=== PATIENT | female | born 1935 | race Caucasian/White ===

== ENCOUNTER 2016-06-10 15:06 | Observation (INO) ==
[2016-06-10 15:50] LABS: Bilirubin,Urine Negative (Negative); Blood,Urine Negative (Negative); Clarity,Urine Clear (Clear); Color,Urine Yellow (Yellow); Glucose,Urine (UA) Normal (Normal); Ketones,Urine Negative (Negative); Leukocyte Esterase,Urine Negative (Negative); Nitrite,Urine Negative (Negative); PH,Urine 6.5 pH Units (5.0-8.0); Protein,Urine Negative (Neg-Trace); Specific Gravity,Urine 1.011 (1.010-1.025); Urobilinogen,Urine Normal (Normal)
--- NOTE | 2016-06-10 16:17 | Emergency Department Note ---
Disposition Clinical Impression: Chest pain Disposition: Admitted As Inpatient Condition: Good Referrals: NO,PCP [Primary Care Provider] - Forms: ED Satisfaction Letter Chest Pain HPI - General Chief Complaint: ED Chest Pain Stated Complaint: CP / Dizzy Time Seen by Provider: 06/10/16 15:10 Source: patient, EMS Vital Signs Reviewed: Yes Nursing Notes Reviewed: Yes - History of Present Illness HPI Narrative: History is limited secondary to patient's dementia. Per report patient reported some nurses station complaining of dizziness, shortness of breath, chest pain that started earlier today. Review of the medical chart reveals the patient was seen for chest pain in February 2016. Patient has dementia but she denies swelling. There is no report of nausea vomiting. Severity scale (1-10): 5 - Related Data Home Medications Medication Instructions Recorded Confirmed Albuterol Neb [Proventil Neb] 2.5 mg IH TID PRN #0 11/11/15 04/06/16 Aspirin 81 mg PO HS 11/11/15 04/06/16 Bisacodyl [Dulcolax] 5 mg PO DAILY PRN #0 11/11/15 04/06/16 Cholecalciferol (D-3) [Vitamin D] 1,000 unit PO DAILY #0 11/11/15 04/06/16 Docusate [Colace] 100 mg PO BID #0 11/11/15 04/06/16 Erythromycin Base [Ilotycin] 1 appl BOTH EYES HS #0 11/11/15 04/06/16 Fluticasone Propionate Nasal 100 mcg NS DAILY 11/11/15 04/06/16 [Flonase] Magnesium Hydroxide [Milk of 2,400 mg PO PRN PRN 11/11/15 04/06/16 Magnesia] Memantine HCl 10 mg PO BID #0 11/11/15 04/06/16 Multivitamin-Min/Iron/FA/Vit K 1 each PO DAILY 11/11/15 04/06/16 [Multi-Day Plus Minerals Tablet] OLANZapine [Zyprexa] 5 mg PO HS 11/11/15 04/06/16 Omeprazole 40 mg PO BID 11/11/15 04/06/16 Polyethylene Glycol 3350 [MiraLAX] 17 gm PO DAILY 11/11/15 04/06/16 Potassium Chloride [K-Tab ER] 10 meq PO DAILY #0 11/11/15 04/06/16 Promethazine [Phenergan] 25 mg PO Q6H PRN 11/11/15 04/06/16 Melatonin 10 mg PO HS 01/10/16 04/06/16 Donepezil [Aricept] 10 mg PO HS 01/19/16 04/06/16 Collagenase Oint [Santyl] 1 appl TP AD 02/24/16 04/06/16 Menthol [Biofreeze] 1 appl TP TID PRN 02/24/16 04/06/16 Oxybutynin Chloride [Ditropan Xl] 5 mg PO DAILY 02/24/16 04/06/16 Calcium Carbonate/Vitamin D3 1 each PO TID 04/06/16 04/06/16 [Calcium 600+D Softgel] LORazepam [Ativan] 0.5 mg PO Q4H PRN 04/06/16 04/06/16 Previous Rx's Medication Instructions Recorded Nystatin POWDER [Nystop] 1 appl TP TID #1 bottle 11/11/15 Albuterol Neb [Proventil Neb] 2.5 mg IH [id number] #0 inhsol 02/28/16 Atorvastatin [Lipitor] 40 mg PO HS tablet 02/28/16 Folic Acid 1 mg PO DAILY tablet 02/28/16 Furosemide [Lasix] 20 mg PO Q24H #0 02/28/16 Lisinopril [Zestril] 2.5 mg PO DAILY #0 02/28/16 Metoclopramide [Reglan] 10 mg PO ACHS ud.liq 02/28/16 Metoprolol XL (24 HR) Succ [Toprol 50 mg PO BID tab.er.24h 02/28/16 Xl] OxyCODONE ER (12 HR) [OxyCONTIN] 20 mg PO Q12HR #30 tab.er.12h 02/28/16 Oxycodone HCl/Acetaminophen 1 each PO Q6H #60 tablet 02/28/16 [Percocet 5-325 mg Tablet] Thiamine (B-1) [Vitamin B-1] 100 mg PO DAILY tablet 02/28/16 Allergies Allergy/AdvReac Type Severity Reaction Status Date / Time clarithromycin Allergy Hives Verified 11/10/15 21:04 codeine Allergy Hives Verified 11/10/15 21:04 hydrocodone [From Lortab] Allergy Hives Verified 11/10/15 21:04 ketorolac Allergy Hives Verified 11/10/15 21:04 Penicillins Allergy Hives Verified 11/10/15 21:04 ivp dye Allergy Anaphylaxis Uncoded 11/10/15 21:04 All systems ED: reviewed and negative except as stated. Chest Pain PMH - Past Medical History Medical history: Reports: arthritis, asthma, CHF, COPD, dementia, GERD, hyperlipidemia, hypertension, myocardial infarction, osteoporosis, renal disease , TIA, other Surgical history: Reports: appendectomy, cholecystectomy, hysterectomy, knee replacement, other Psychiatric history: Reports: schizophrenia, other [employer] history: Reports: no [employer] history - Social History Smoking Status: Never smoker Alcohol use: Reports: none Drug use: Reports: none Physical Exam - General Limitations: altered mental status General appearance: alert - Head Head exam: atraumatic, normocephalic, normal inspection - Eye Eye exam: Present: normal appearance, PERRL, EOMI - ENT ENT exam: normal exam, normal oropharynx, mucous membranes moist - Neck Neck exam: Present: normal inspection, full ROM, trachea midline - Chest Chest inspection: Present: normal inspection, symmetric chest wall rise - Respiratory Respiratory exam: Present: normal lung sounds bilaterally - Cardiovascular Cardiovascular exam: Present: regular rate, normal rhythm, normal heart sounds - Abdominal Exam Abdominal exam: Present: soft, Non-Tender. Absent: tenderness, distention, guarding, rebound, rigidity - Extremities Exam Extremities exam: Present: normal inspection, full ROM. Absent: tenderness, pedal edema - Back Exam Back exam: Present: normal inspection, full ROM. Absent: tenderness - Neurological Exam Neurological exam: Present: other (Limited secondary to patient's mental status) - Psychiatric Psychiatric exam: Present: other (Limited secondary to patient mental status) - Skin Skin exam: Present: warm, dry, intact, normal color Course Course Narrative: D-dimer is elevated. CT PE cannot perform due to patient's kidney function Vital Signs Temperature 98.5 F 06/10/16 15:10 Pulse Rate 51 06/10/16 15:10 Respiratory Rate 14 06/10/16 15:10 Blood Pressure 179/92 06/10/16 15:10 O2 Sat by Pulse Oximetry 96 06/10/16 15:10 Temperature 98.5 F 06/10/16 15:10 Pulse Rate 62 06/10/16 17:39 Respiratory Rate 20 06/10/16 17:39 Blood Pressure 165/86 06/10/16 17:39 O2 Sat by Pulse Oximetry 95 06/10/16 17:39 Oxygen Delivery Oxygen Delivery Nasal Cannula Chest Pain - Differential Diagnosis Likely: stable angina, atypical chest pain, st elevation myocardial infraction, chest pain - Medical Records Medical records reviewed: Yes I reviewed the patient's medical records. - Lab Data Lab results reviewed: Yes I reviewed the patient's lab results. Result diagrams: 06/10/16 17:17 06/10/16 16:33 Lab Results 06/10/16 06/10/16 06/10/16 Range/Units 15:34 16:33 16:33 WBC (4.3-11.1) K/mcL RBC (3.82-4.97) M/mcL Hgb (11.5-15.4) g/dL Hct (35.3-44.9) % MCV (83.0-100.0) fL MCH (28.0-33.3) pg MCHC (31.6-35.5) g/dL RDW (11.5-14.5) % Plt Count (140-400) K/mcL MPV (9.4-12.4) fL Immature Gran % (0-4) % Seg Neutrophils % % Lymphocytes % % Monocytes % % Eosinophils % % Basophils % % Neutrophils # (1.6-8.9) K/mcL Lymphocytes # (0.6-4.6) K/mcL Monocytes # (0.0-1.3) K/mcL Eosinophils # (0.0-0.6) K/mcL Basophils # (0.0-0.2) K/mcL Immature Plt Fraction (1.1-6.1) % PT 12.9 H (9.4-12.1) Seconds INR 1.2 APTT 30.8 (26.0-36.0) Seconds D-Dimer 995 H (0-500) ng/mLFEU Sodium 137 (136-145) mEq/L Potassium 4.7 H (3.5-4.5) mEq/L Chloride 103 (98-109) mEq/L Carbon Dioxide 24 (19-29) mEq/L BUN 26 H (7-20) mg/dL Creatinine 1.11 (0.57-1.11) mg/dL Est GFR ( Amer) 57 L (> 60) Est GFR (Non-Af Amer) 47 L (> 60) BUN/Creatinine Ratio 23 (6-26) Glucose 100 H (70-99) mg/dL Calculated Osmolality 289 (280-300) Lactic Acid (0.5-2.2) mmol/L Calcium 9.1 (8.6-10.8) mg/dL Total Bilirubin 0.4 (0.2-1.2) mg/dL AST 17 (5-34) Units/L ALT 9 (0-55) Units/L Alkaline Phosphatase 91 (38-126) Units/L Troponin I (0-0.03) ng/mL B-Natriuretic Peptide (0-100) pg/mL Serum Total Protein 6.3 (6.0-8.3) g/dL Albumin 3.4 L (3.5-5.0) g/dL Globulin 2.9 (2.4-3.5) g/dL Albumin/Globulin Ratio 1.2 (1.1-2.2) Urine Color Yellow (Yellow) Urine Clarity Clear (Clear) Urine pH 6.5 (5.0-8.0) pH Units Ur Specific [place] 1.011 (1.010-1.025) Urine Protein Negative (Neg-Trace) mg/dL Urine Glucose (UA) Normal (Normal) mg/dL Urine Ketones Negative (Negative) mg/dL Urine Blood Negative (Negative) Urine Nitrite Negative (Negative) Urine Bilirubin Negative (Negative) Urine Urobilinogen Normal (Normal) mg/dL Ur Leukocyte Esterase Negative (Negative) Ur Culture Indicated? NO (NO) Specimen Rejected 06/10/16 06/10/16 06/10/16 Range/Units 16:33 16:33 16:33 WBC (4.3-11.1) K/mcL RBC (3.82-4.97) M/mcL Hgb (11.5-15.4) g/dL Hct (35.3-44.9) % MCV (83.0-100.0) fL MCH (28.0-33.3) pg MCHC (31.6-35.5) g/dL RDW (11.5-14.5) % Plt Count (140-400) K/mcL MPV (9.4-12.4) fL Immature Gran % (0-4) % Seg Neutrophils % % Lymphocytes % % Monocytes % % Eosinophils % % Basophils % % Neutrophils # (1.6-8.9) K/mcL Lymphocytes # (0.6-4.6) K/mcL Monocytes # (0.0-1.3) K/mcL Eosinophils # (0.0-0.6) K/mcL Basophils # (0.0-0.2) K/mcL Immature Plt Fraction (1.1-6.1) % PT (9.4-12.1) Seconds INR APTT (26.0-36.0) Seconds D-Dimer (0-500) ng/mLFEU Sodium (136-145) mEq/L Potassium (3.5-4.5) mEq/L Chloride (98-109) mEq/L Carbon Dioxide (19-29) mEq/L BUN (7-20) mg/dL Creatinine (0.57-1.11) mg/dL Est GFR ( Amer) (> 60) Est GFR (Non-Af Amer) (> 60) BUN/Creatinine Ratio (6-26) Glucose (70-99) mg/dL Calculated Osmolality (280-300) Lactic Acid (0.5-2.2) mmol/L Calcium (8.6-10.8) mg/dL Total Bilirubin (0.2-1.2) mg/dL AST (5-34) Units/L ALT (0-55) Units/L Alkaline Phosphatase (38-126) Units/L Troponin I 0.01 (0-0.03) ng/mL B-Natriuretic Peptide 141 H (0-100) pg/mL Serum Total Protein (6.0-8.3) g/dL Albumin (3.5-5.0) g/dL Globulin (2.4-3.5) g/dL Albumin/Globulin Ratio (1.1-2.2) Urine Color (Yellow) Urine Clarity (Clear) Urine pH (5.0-8.0) pH Units Ur Specific [place] (1.010-1.025) Urine Protein (Neg-Trace) mg/dL Urine Glucose (UA) (Normal) mg/dL Urine Ketones (Negative) mg/dL Urine Blood (Negative) Urine Nitrite (Negative) Urine Bilirubin (Negative) Urine Urobilinogen (Normal) mg/dL Ur Leukocyte Esterase (Negative) Ur Culture Indicated? (NO) Specimen Rejected Clotted 06/10/16 06/10/16 Range/Units 16:49 17:17 WBC 6.2 (4.3-11.1) K/mcL RBC 3.76 L (3.82-4.97) M/mcL Hgb 11.4 L (11.5-15.4) g/dL Hct 35.1 L (35.3-44.9) % MCV 93.4 (83.0-100.0) fL MCH 30.3 (28.0-33.3) pg MCHC 32.5 (31.6-35.5) g/dL RDW 12.4 (11.5-14.5) % Plt Count 180 (140-400) K/mcL MPV 9.4 (9.4-12.4) fL Immature Gran % 0.2 (0-4) % Seg Neutrophils % 60.2 % Lymphocytes % 23.6 % Monocytes % 11.3 % Eosinophils % 4.2 % Basophils % 0.5 % Neutrophils # 3.7 (1.6-8.9) K/mcL Lymphocytes # 1.5 (0.6-4.6) K/mcL Monocytes # 0.7 (0.0-1.3) K/mcL Eosinophils # 0.3 (0.0-0.6) K/mcL Basophils # 0.0 (0.0-0.2) K/mcL Immature Plt Fraction 2.3 (1.1-6.1) % PT (9.4-12.1) Seconds INR APTT (26.0-36.0) Seconds D-Dimer (0-500) ng/mLFEU Sodium (136-145) mEq/L Potassium (3.5-4.5) mEq/L Chloride (98-109) mEq/L Carbon Dioxide (19-29) mEq/L BUN (7-20) mg/dL Creatinine (0.57-1.11) mg/dL Est GFR ( Amer) (> 60) Est GFR (Non-Af Amer) (> 60) BUN/Creatinine Ratio (6-26) Glucose (70-99) mg/dL Calculated Osmolality (280-300) Lactic Acid 0.6 (0.5-2.2) mmol/L Calcium (8.6-10.8) mg/dL Total Bilirubin (0.2-1.2) mg/dL AST (5-34) Units/L ALT (0-55) Units/L Alkaline Phosphatase (38-126) Units/L Troponin I (0-0.03) ng/mL B-Natriuretic Peptide (0-100) pg/mL Serum Total Protein (6.0-8.3) g/dL Albumin (3.5-5.0) g/dL Globulin (2.4-3.5) g/dL Albumin/Globulin Ratio (1.1-2.2) Urine Color (Yellow) Urine Clarity (Clear) Urine pH (5.0-8.0) pH Units Ur Specific [place] (1.010-1.025) Urine Protein (Neg-Trace) mg/dL Urine Glucose (UA) (Normal) mg/dL Urine Ketones (Negative) mg/dL Urine Blood (Negative) Urine Nitrite (Negative) Urine Bilirubin (Negative) Urine Urobilinogen (Normal) mg/dL Ur Leukocyte Esterase (Negative) Ur Culture Indicated? (NO) Specimen Rejected - Radiology Data Radiology results reviewed: Yes I reviewed the patient's radiology results. Chest X-Ray 06/10/16 15:27 IMPRESSION: No acute cardiopulmonary disease. D/ / 06/10/2016 16:08:34 Uriel Reynoso MD / fausto Interpreting Provider: Uriel Reynoso MD - EKG Data EKG attestation: Yes I reviewed and interpreted this EKG. EKG results narrative: T-wave inversions in lead 3 and T-wave flattening aVF that is not present on previous EKG EKG shows normal: sinus rhythm Rate: normal Rhythm: NSR
[2016-06-10 17:09] LABS: INR 1.2; Prothrombin Time 12.9 Seconds (9.4-12.1)
[2016-06-10 17:11] LABS: Activated Partial Thrombo Time 30.8 Seconds (26.0-36.0)
[2016-06-10 17:17] LABS: Albumin 3.4 g/dL (3.5-5.0); Albumin/Globulin Ratio 1.2 (1.1-2.2); Bilirubin,Total 0.4 mg/dL (0.2-1.2); Calcium 9.1 mg/dL (8.6-10.8); Globulin 2.9 g/dL (2.4-3.5); Potassium 4.7 mEq/L (3.5-4.5); Total Protein 6.3 g/dL (6.0-8.3)
[2016-06-10 17:26] LABS: Basophils % 0.5 %; Eosinophils # 0.3 K/mcL (0.0-0.6); Eosinophils % 4.2 %; Hematocrit 35.1 % (35.3-44.9); Hemoglobin 11.4 g/dL (11.5-15.4); Immature Granulocytes % 0.2 % (0-4); Immature Platelets 2.3 % (1.1-6.1); Lymphocytes # 1.5 K/mcL (0.6-4.6); Lymphocytes % 23.6 %; Mean Corpuscular HGB Conc 32.5 g/dL (31.6-35.5); Mean Corpuscular Hemoglobin 30.3 pg (28.0-33.3); Mean Corpuscular Volume 93.4 fL (83.0-100.0); Mean Platelet Volume 9.4 fL (9.4-12.4); Monocytes # 0.7 K/mcL (0.0-1.3); Monocytes % 11.3 %; Neutrophils # 3.7 K/mcL (1.6-8.9); Platelet Count 180 K/mcL (140-400); Red Blood Count 3.76 M/mcL (3.82-4.97); Red Cell Distribution Width 12.4 % (11.5-14.5); Segmented Neutrophils % 60.2 %
[2016-06-10] MEDS ORDERED: Temazepam 15 MG CAPSULE PO PRN (20:47)
[2016-06-10] MEDS ORDERED: Naloxone 0.4 MG/ML INJ IVP PRN (20:47)
[2016-06-10] MEDS ORDERED: Ondansetron 4 MG/2 ML VIAL IVP PRN (20:53)
--- NOTE | 2016-06-10 21:00 | Internal Med History&Physical ---
Date of Encounter: 06/11/16 Time of Encounter: 20:58 Assessment and Plan (1) Elevated d-dimer Current visit: Yes Status: Acute Patient has an IV dye allergy. Will order VQ scan for the morning to rule out PE. We will obtain lower extremity venous Doppler. (2) Allergy to contrast media (used for diagnostic x-rays) Current visit: Yes Status: Acute As above. (3) Chest pain Current visit: Yes Status: Acute Trend troponin. Monitor on telemetry. Qualifiers: Chest pain type: unspecified Qualified Code(s): R07.9 - Chest pain, unspecified (4) Abnormal EKG Current visit: No Status: Acute (5) CKD (chronic kidney disease) stage 3, GFR 30-59 ml/min Current visit: No Status: Acute Avoid nephrotoxins. (6) DVT prophylaxis Current visit: No Status: Acute Heparin subcutaneous (7) Takotsubo cardiomyopathy Current visit: No Status: Acute Per chart review patient had an echocardiogram in February 2016 which showed an ejection fraction of 20%. She had a cardiac catheterization at the same time which showed minimal atherosclerotic coronary disease. No intervention was needed. Findings consistent with cerebral cardiomyopathy. We will obtain a limited echocardiogram to reevaluate ejection fraction. (8) Dementia Current visit: No Status: Chronic Continue Namenda Qualifiers: Dementia type: Alzheimer's disease Alzheimer's disease onset: late-onset Dementia behavioral disturbance: without behavioral disturbance Qualified Code (s): G30.1 - Alzheimer's disease with late onset; F02.80 - Dementia in other diseases classified elsewhere without behavioral disturbance (9) Hypertension Current visit: No Status: Chronic Continue with lisinopril and metoprolol. Qualifiers: Hypertension type: essential hypertension Qualified Code(s): I10 - Essential (primary) hypertension Internal Medicine - H&P: HPI Chief complaint: Chest pain Admitted From: Emergency Dept Plans for Post Hospital Care: Transfer Longterm Facility History of present illness: Ms. Almendarez is a 80 year old female , [facility] resident with multiple medical comorbidities including COPD, GERD, cardiomyopathy, hypertension and TIA who was brought to the hospital for chest pain and dizziness. The history is limited by his severe dementia. Per ED documentation the patient had been lightheaded than complaining of chest pain at the [facility] today. Currently she says that she hurts all over but she appears very comfortable. She denies shortness of breath and diaphoresis. Denies nausea. Her initial workup was negative except for a d-dimer which was positive. Because of her CK D she could not be subjected to a CT angiogram of the chest and therefore was referred for observation. Review of systems Limited by the patient's dementia Family history Limited by the patient's dementia. Past Med Surg Social Fam HX - Past Medical History Medical history: arthritis, asthma, CHF, COPD, dementia, GERD, hyperlipidemia, hypertension, myocardial infarction, osteoporosis, renal disease, TIA, other Psychiatric history: schizophrenia, other - Past Surgical History Surgical History: appendectomy, cholecystectomy, hysterectomy, knee replacement , other - Social History Smoking Status: Never smoker Smokeless Tobacco Status: No Alcohol use: none Drug use: none - Family History Mother History Unknown: Yes Family Member Ethnicity: Non- Living Status: Hx Family Cardiac Disorders: Yes (HTN) Hx Family Endocrine Disorder: Yes (insulin dependent) Internal Medicine - H&P: Meds Albuterol Neb [Proventil Neb] 2.5 mg IH TID PRN #0 11/11/15 [History] Aspirin 81 mg PO HS 11/11/15 [History] Bisacodyl [Dulcolax] 5 mg PO DAILY PRN #0 11/11/15 [History] Cholecalciferol (D-3) [Vitamin D] 1,000 unit PO DAILY #0 11/11/15 [History] Docusate [Colace] 100 mg PO BID #0 11/11/15 [History] Erythromycin Base [Ilotycin] 1 appl BOTH EYES HS #0 11/11/15 [History] Fluticasone Propionate Nasal [Flonase] 100 mcg NS DAILY 11/11/15 [History] Magnesium Hydroxide [Milk of Magnesia] 2,400 mg PO PRN PRN 11/11/15 [History] Memantine HCl 10 mg PO BID #0 11/11/15 [History] Multivitamin-Min/Iron/FA/Vit K [Multi-Day Plus Minerals Tablet] 1 each PO DAILY 11/11/15 [History] Nystatin POWDER [Nystop] 1 appl TP TID #1 bottle 11/11/15 [Rx] OLANZapine [Zyprexa] 5 mg PO HS 11/11/15 [History] Omeprazole 40 mg PO BID 11/11/15 [History] Polyethylene Glycol 3350 [MiraLAX] 17 gm PO DAILY 11/11/15 [History] Potassium Chloride [K-Tab ER] 10 meq PO DAILY #0 11/11/15 [History] Promethazine [Phenergan] 25 mg PO Q6H PRN 11/11/15 [History] Melatonin 10 mg PO HS 01/10/16 [History] Donepezil [Aricept] 10 mg PO HS 01/19/16 [History] Collagenase Oint [Santyl] 1 appl TP AD 02/24/16 [History] Menthol [Biofreeze] 1 appl TP TID PRN 02/24/16 [History] Oxybutynin Chloride [Ditropan Xl] 5 mg PO DAILY 02/24/16 [History] Albuterol Neb [Proventil Neb] 2.5 mg IH [id number] #0 inhsol 02/28/16 [Rx] Atorvastatin [Lipitor] 40 mg PO HS tablet 02/28/16 [Rx] Folic Acid 1 mg PO DAILY tablet 02/28/16 [Rx] Furosemide [Lasix] 20 mg PO Q24H #0 02/28/16 [Rx] Lisinopril [Zestril] 2.5 mg PO DAILY #0 02/28/16 [Rx] Metoclopramide [Reglan] 10 mg PO ACHS ud.liq 02/28/16 [Rx] Metoprolol XL (24 HR) Succ [Toprol Xl] 50 mg PO BID tab.er.24h 02/28/16 [Rx] OxyCODONE ER (12 HR) [OxyCONTIN] 20 mg PO Q12HR #30 tab.er.12h 02/28/16 [Rx] Oxycodone HCl/Acetaminophen [Percocet 5-325 mg Tablet] 1 each PO Q6H #60 tablet 02/28/16 [Rx] Thiamine (B-1) [Vitamin B-1] 100 mg PO DAILY tablet 02/28/16 [Rx] Calcium Carbonate/Vitamin D3 [Calcium 600+D Softgel] 1 each PO TID 04/06/16 [ History] LORazepam [Ativan] 0.5 mg PO Q4H PRN 04/06/16 [History] Allergies clarithromycin Allergy (Verified 11/10/15 21:04) Hives codeine Allergy (Verified 11/10/15 21:04) Hives hydrocodone [From Lortab] Allergy (Verified 11/10/15 21:04) Hives ketorolac Allergy (Verified 11/10/15 21:04) Hives Penicillins Allergy (Verified 11/10/15 21:04) Hives ivp dye Allergy (Uncoded 11/10/15 21:04) Anaphylaxis All Systems PM: A 10-system review of systems was performed and is negative for pertinent findings except as documented above in the HPI. - Constitutional Vitals: Temp Pulse Resp BP Pulse Ox 98.8 F 53 12 172/79 94 L 06/10/16 19:17 06/10/16 19:17 06/10/16 19:17 06/10/16 19:06/10/16 19:17 General appearance: Present: cooperative, A&O X 1, no acute distress - Eye Eye exam: Present: PERRL, conjuntiva pink, sclera anicteric Pupils: Present: PERRL - Respiratory Respiratory exam: Present: CTAB. Absent: accessory muscle use, rales, rhonchi, wheezes - Cardiovascular Cardiovascular exam: Present: RRR, +S1, +S2. Absent: diastolic murmur, gallop, rubs, systolic murmur - GI/Abdominal GI/Abdominal exam: Present: normal bowel sounds, soft, no peritoneal signs. Absent: distended, tenderness - Extremities Exam Extremities exam: Present: warm, radial pulses palpable and symetrical. Absent : calf tenderness, cyanotic, pedal edema - Skin Skin exam: Present: dry, intact Internal Med - H&P Results - Labs CBC & Chem 7: 06/10/16 17:17 06/10/16 16:33 - EKG Data EKG comments: 06/11/16 04:56 EKG shows sinus bradycardiarate 50 bpm, first-degree, LVH and no ST or T-wave changes.
[2016-06-10] MEDS ORDERED: Ipratropium/Albuterol Neb 3 ML IH PRN (21:09)
[2016-06-11 06:21] LABS: Basophils % 0.7 %; Eosinophils # 0.3 K/mcL (0.0-0.6); Eosinophils % 5.1 %; Hematocrit 35.6 % (35.3-44.9); Hemoglobin 11.5 g/dL (11.5-15.4); Immature Granulocytes % 0.2 % (0-4); Lymphocytes # 1.8 K/mcL (0.6-4.6); Lymphocytes % 34.3 %; Mean Corpuscular HGB Conc 32.3 g/dL (31.6-35.5); Mean Corpuscular Hemoglobin 30.2 pg (28.0-33.3); Mean Corpuscular Volume 93.4 fL (83.0-100.0); Mean Platelet Volume 9.7 fL (9.4-12.4); Monocytes # 0.7 K/mcL (0.0-1.3); Monocytes % 12.4 %; Neutrophils # 2.5 K/mcL (1.6-8.9); Platelet Count 180 K/mcL (140-400); Red Blood Count 3.81 M/mcL (3.82-4.97); Red Cell Distribution Width 12.6 % (11.5-14.5); Segmented Neutrophils % 47.3 %
[2016-06-11 06:34] LABS: Calcium 9.4 mg/dL (8.6-10.8); Magnesium 2.3 mg/dL (1.6-2.6); Potassium 4.2 mEq/L (3.5-4.5)
[2016-06-11] MEDS ORDERED: *HR* Heparin 5,000 UNIT/ML VIAL SQ SCH (07:00)
--- NOTE | 2016-06-11 12:17 | ECHO - Doppler Report ---
Limited Echocardiogram Name: Tigist Almendarez Date of Study: 06/11/2016 Date: 1935 Ht: 65.0 in Medical Record#: [id number] Age: 80 Wt: 166.0 lb Gender: Female BSA: 1.83 Order #: [id number] Location: [facility] Room #: [facility] [place] Physician: Nikita Hamilton DO, FACC, FASE, FASNC Professor Of Psychology: Tatum Sarabia RDCS, RVT Ordering Physician: Az Liagn MD Primary Physician: Chacorta Arce MD Indications: Chest pain, Cardiomyopathy Impressions: LVEF 60-65%. Normal LV chamber size, wall thickness and function. Previously described cardiomyopathy has resolved. LV function is now normal. Limited study - valves not assessed. Left Ventricular Wall Motion: Rest Echo Findings All wall segments showed normal motion. Findings: Study Quality * Technically adequate exam. ECG Findings * Normal sinus rhythm. Left Ventricle * LVEF 60-65%. * Normal LV chamber size, wall thickness and function. Right Ventricle * Normal right ventricular structure and function. Pericardium * The pericardium appears normal. IVC * Normal IVC dimensions and inspiratory collapse. History Hypertension Hypercholesteremia Rheumatic Fever Family History of CAD History of CAD/PTCA Myocardial Infarction Congestive Heart Failure 05-07-2016 a Previous Echo was performed. Measurements: BP: 136/ 72 2D Normal Values IVSd: .80 cm 0.6 - 1.0 cm LVIDd: 5.10 cm 3.7 - 5.6 cm LVPWd: .80 cm 0.6 - 1.1 cm LVIDs: 2.80 cm 1.5 - 3.6 cm %FS: 45.10 cm >25 % LA volume: Updated by Nikita Hamilton DO, FACC, FASE, FASNC on 06/11/2016 12:08:10 PM electronically signed on 06/11/2016 12:12:41 PM with status of Final Wall Motion [place]: 1=Normal, 2=Hypokinesis, 3=Akinesis, 4=Dyskinesis, 5=Aneurysmal, 6=Hyperkinetic, X=Not Visualized (Blank)=Missing
[2016-06-11 15:58] VITALS: BP 144/79
--- NOTE | 2016-06-11 16:03 | Discharge Summary ---
Date of Encounter: 06/11/16 Time of Encounter: 15:00 - Discharge Diagnosis (1) Chest pain Priority: Primary Status: Acute Qualifiers: Chest pain type: unspecified Qualified Code(s): R07.9 - Chest pain, unspecified (2) Takotsubo cardiomyopathy Priority: Primary Status: Acute (3) Dementia Priority: Primary Status: Chronic Qualifiers: Dementia type: Alzheimer's disease Alzheimer's disease onset: late-onset Dementia behavioral disturbance: without behavioral disturbance Qualified Code (s): G30.1 - Alzheimer's disease with late onset; F02.80 - Dementia in other diseases classified elsewhere without behavioral disturbance (4) Renal insufficiency Priority: Secondary Status: Resolved (5) Elevated d-dimer Priority: Primary Status: Acute - Discharge Medications Home Medications: Albuterol Neb [Proventil Neb] 2.5 mg IH TID PRN #0 11/11/15 [History] Aspirin 81 mg PO HS 11/11/15 [History] Bisacodyl [Dulcolax] 5 mg PO DAILY PRN #0 11/11/15 [History] Cholecalciferol (D-3) [Vitamin D] 1,000 unit PO DAILY #0 11/11/15 [History] Docusate [Colace] 100 mg PO BID PRN #0 11/11/15 [History] Erythromycin Base [Ilotycin] 1 appl BOTH EYES HS #0 11/11/15 [History] Fluticasone Propionate Nasal [Flonase] 100 mcg NS DAILY PRN 11/11/15 [History] Magnesium Hydroxide [Milk of Magnesia] 2,400 mg PO PRN PRN 11/11/15 [History] Memantine HCl 10 mg PO BID #0 11/11/15 [History] Multivitamin-Min/Iron/FA/Vit K [Multi-Day Plus Minerals Tablet] 1 each PO DAILY 11/11/15 [History] OLANZapine [Zyprexa] 5 mg PO HS 11/11/15 [History] Omeprazole 40 mg PO BID 11/11/15 [History] Polyethylene Glycol 3350 [MiraLAX] 17 gm PO BID 11/11/15 [History] Potassium Chloride [K-Tab ER] 10 meq PO DAILY #0 11/11/15 [History] Promethazine [Phenergan] 25 mg PO Q6H PRN 11/11/15 [History] Melatonin 10 mg PO HS 01/10/16 [History] Donepezil [Aricept] 10 mg PO HS 01/19/16 [History] Menthol [Biofreeze] 1 appl TP TID PRN 02/24/16 [History] Oxybutynin Chloride [Ditropan Xl] 5 mg PO DAILY 02/24/16 [History] Atorvastatin [Lipitor] 40 mg PO HS tablet 02/28/16 [Rx] Folic Acid 1 mg PO DAILY tablet 02/28/16 [Rx] Lisinopril [Zestril] 2.5 mg PO DAILY #0 02/28/16 [Rx] Metoprolol XL (24 HR) Succ [Toprol Xl] 50 mg PO BID tab.er.24h 02/28/16 [Rx] Thiamine (B-1) [Vitamin B-1] 100 mg PO DAILY tablet 02/28/16 [Rx] Calcium Carbonate/Vitamin D3 [Calcium 600+D Softgel] 1 each PO TID 04/06/16 [ History] Acetaminophen [Tylenol] 325 mg PO Q6HR PRN 06/11/16 [History] Albuterol Neb [Proventil Neb] 2.5 mg IH [id number] PRN 06/11/16 [History] Furosemide [Lasix] 20 mg PO DAILY 06/11/16 [History] MOM Conc [MILK OF MAGNESIA conc] 30 ml PO DAILY PRN 06/11/16 [History] Metoclopramide [Reglan] 10 mg PO QID 06/11/16 [History] Oxycodone HCl/Acetaminophen [Percocet 10-325 mg Tablet] 1 each PO Q6H PRN [History] Vitamin B Complex 1 each PO DAILY 06/11/16 [History] Allergies/Adverse Reactions: Allergies clarithromycin Allergy (Verified 11/10/15 21:04) Hives codeine Allergy (Verified 11/10/15 21:04) Hives hydrocodone [From Lortab] Allergy (Verified 11/10/15 21:04) Hives ketorolac Allergy (Verified 11/10/15 21:04) Hives Penicillins Allergy (Verified 11/10/15 21:04) Hives ivp dye Allergy (Uncoded 11/10/15 21:04) Anaphylaxis Procedures/tests Complete & Pending: Procedures Performed prior 72 hours Category Date Time Status EV limited echocardiogram Routine Y 06/11/16 20:56 Completed EV venous imaging LE BI Routine Y 06/11/16 21:08 Completed Date of admission: 06/10/16 18:16 Primary care physician: PCP NO Consults: 06/10/16 20:55 Consult to Occupational Therapy [CONS] Routine Comment: Evaluate, develop and implement POC Consult to Physical Therapy [CONS] Routine Comment: Evaluate, develop and implement POC Consult to Portrait Consultant [CONS] Routine Reason for SW Consult: Return to [facility] Discharging clinician: Grace Ellington Anticipated date of discharge: 06/11/16 - Patient Status Disposition: Transfer SNF Condition: Good Functional capacity at discharge: uses cane/walker Overall status at discharge: patient is back to baseline - Discharge Instructions Follow Up With: NO,PCP [Primary Care Provider] - - Diet and Activity Activity: as per physical therapy Diet: low fat, low cholesterol, low salt diet Interval History: Ms. Almendarez is a 80 year old female , [facility] resident with multiple medical comorbidities including COPD, GERD, cardiomyopathy, hypertension and TIA who was brought to the hospital for chest pain and dizziness. The history is limited by his severe dementia. Per ED documentation the patient had been lightheaded than complaining of chest pain at the [facility] today. Currently she says that she hurts all over but she appears very comfortable. She denies shortness of breath and diaphoresis. Denies nausea. Her initial workup was negative except for a d-dimer which was positive. Because of her CK D she could not be subjected to a CT angiogram of the chest and therefore was referred for observation. Hospital course: Ms. Almendarez is a 80 year old female admitted for chest pain. Pt is demented and history is not reliable. She was placed on cardiac monitoring. Three sets of troponin negative. EKG unremarkable. CXR negative. Pt was suspected Takotsubo cardiomyopathy in Feb 2016 with EF 20%. Echo was repeated today, LVEF 60-65%, previous cardiomyopathy resolved. Pt has elevated D-Dimer, V/Q scan ordered but pt cannot cooperate and cannot finish the studay. She is allergic to contrast and has poor renal function. She doesn't have desaturation or tachycardia, PE is less likely. D/W with pt's daughter, balance the risk and benefit, we will not do any further test. Pt has no chest pain now, will discharge her back to NH. Pt was seen and examined. She is awake, alert, demented. Vitals are stable. No chest pain, in NAD. Stable to d/c NH. - Time Spent with Patient Total time spent providing and/or coordinating discharge services: 40 minutes. Greater than 30 minutes - Constitutional Vitals: Temp Pulse Resp BP Pulse Ox 98.0 F 63 16 153/79 95 06/11/16 11:45 06/11/16 11:45 06/11/16 11:45 06/11/16 11:45 06/11/16 11:45 General appearance: Present: cooperative, A&O X 1, no acute distress - Head Head exam: Present: atraumatic, normocephalic - Eye Eye exam: Present: PERRL, conjuntiva pink, sclera anicteric Pupils: Present: PERRL - Neck Neck exam general surgery: Present: supple, trachea midline. Absent: lymphadenopathy - Respiratory Respiratory exam: Present: CTAB. Absent: accessory muscle use, rales, rhonchi, wheezes - Cardiovascular Cardiovascular exam: Present: RRR, +S1, +S2. Absent: diastolic murmur, gallop, rubs, systolic murmur - GI/Abdominal GI/Abdominal exam: Present: normal bowel sounds, soft, no peritoneal signs. Absent: distended, tenderness - Extremities Exam Extremities exam: Present: warm, radial pulses palpable and symetrical. Absent : calf tenderness, cyanotic, pedal edema - Neurological Exam Neurological exam: Present: CN II-XII intact, oriented X3, no focal deficits. Absent: pronater drift, facial droop, speech deficit - Skin Skin exam: Present: dry, intact
--- NOTE | 2016-06-11 16:22 | Physician Discharge Referral ---
[facility] Referral Info Transfer To: ECF Provider in Charge after Transfer: PCP, Other - Diagnosis (1) Chest pain Status: Acute (2) Takotsubo cardiomyopathy Status: Acute (3) Dementia Status: Chronic (4) Renal insufficiency Status: Resolved (5) Elevated d-dimer Status: Acute - Transfer Medications Home Medications: Albuterol Neb [Proventil Neb] 2.5 mg IH TID PRN #0 11/11/15 [History] Aspirin 81 mg PO HS 11/11/15 [History] Bisacodyl [Dulcolax] 5 mg PO DAILY PRN #0 11/11/15 [History] Cholecalciferol (D-3) [Vitamin D] 1,000 unit PO DAILY #0 11/11/15 [History] Docusate [Colace] 100 mg PO BID PRN #0 11/11/15 [History] Erythromycin Base [Ilotycin] 1 appl BOTH EYES HS #0 11/11/15 [History] Fluticasone Propionate Nasal [Flonase] 100 mcg NS DAILY PRN 11/11/15 [History] Magnesium Hydroxide [Milk of Magnesia] 2,400 mg PO PRN PRN 11/11/15 [History] Memantine HCl 10 mg PO BID #0 11/11/15 [History] Multivitamin-Min/Iron/FA/Vit K [Multi-Day Plus Minerals Tablet] 1 each PO DAILY 11/11/15 [History] OLANZapine [Zyprexa] 5 mg PO HS 11/11/15 [History] Omeprazole 40 mg PO BID 11/11/15 [History] Polyethylene Glycol 3350 [MiraLAX] 17 gm PO BID 11/11/15 [History] Potassium Chloride [K-Tab ER] 10 meq PO DAILY #0 11/11/15 [History] Promethazine [Phenergan] 25 mg PO Q6H PRN 11/11/15 [History] Melatonin 10 mg PO HS 01/10/16 [History] Donepezil [Aricept] 10 mg PO HS 01/19/16 [History] Menthol [Biofreeze] 1 appl TP TID PRN 02/24/16 [History] Oxybutynin Chloride [Ditropan Xl] 5 mg PO DAILY 02/24/16 [History] Atorvastatin [Lipitor] 40 mg PO HS tablet 02/28/16 [Rx] Folic Acid 1 mg PO DAILY tablet 02/28/16 [Rx] Lisinopril [Zestril] 2.5 mg PO DAILY #0 02/28/16 [Rx] Metoprolol XL (24 HR) Succ [Toprol Xl] 50 mg PO BID tab.er.24h 02/28/16 [Rx] Thiamine (B-1) [Vitamin B-1] 100 mg PO DAILY tablet 02/28/16 [Rx] Calcium Carbonate/Vitamin D3 [Calcium 600+D Softgel] 1 each PO TID 04/06/16 [ History] Acetaminophen [Tylenol] 325 mg PO Q6HR PRN 06/11/16 [History] Albuterol Neb [Proventil Neb] 2.5 mg IH [id number] PRN 06/11/16 [History] Furosemide [Lasix] 20 mg PO DAILY 06/11/16 [History] MOM Conc [MILK OF MAGNESIA conc] 30 ml PO DAILY PRN 06/11/16 [History] Metoclopramide [Reglan] 10 mg PO QID 06/11/16 [History] Oxycodone HCl/Acetaminophen [Percocet 10-325 mg Tablet] 1 each PO Q6H PRN [History] Vitamin B Complex 1 each PO DAILY 06/11/16 [History] Allergies/Adverse Reactions: Allergies clarithromycin Allergy (Verified 11/10/15 21:04) Hives codeine Allergy (Verified 11/10/15 21:04) Hives hydrocodone [From Lortab] Allergy (Verified 11/10/15 21:04) Hives ketorolac Allergy (Verified 11/10/15 21:04) Hives Penicillins Allergy (Verified 11/10/15 21:04) Hives ivp dye Allergy (Uncoded 11/10/15 21:04) Anaphylaxis - Respiratory Orders Smoking Cessation: Smoking cessation has been advised. For more information, call the [place] Tobacco Quit Line at 5-047-MDAG-NOW. - Advance Directives Code Status: DNR-Arrest/Don't Intubate - Rehabiliation Orders Rehab Orders: Evaluation for Physical Therapy - Diet Orders Cardiac CERTIFICATION: I certify that the transfer of the above named patient to an Extended Care Facility is necessary for the continuing treatment of the diagnosis listed. The above information is true and accurate reflection of patient's current condition. Confidential - Redisclosure prohibited without a patient's written consent.
--- NOTE | 2016-06-12 06:41 | Electrocardiograph Report ---
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
--- NOTE | 2016-06-12 13:24 | Venous Imaging Report ---
LE Venous Duplex Patient Name:Tigist Almendarez Order Number:[id number] Procedure Date:06/11/2016 Date:4Age:80 yrs Gender:Female Location:[facility] Room #: B Patient Appointment Coordinator:Tatum Sarabia RDCS, RVT Referring MD:Az Liang MD telephonic rn:Chacorta Arce MD Reading MD:Brandon Schaeffer MD , FACS Primary Indications:Elevated D dimer Secondary Indications: Risk Factors Yes/No Anticoagulants No Trauma to Veins No Hx of DVT No Hx of Chemotherapy No Impressions: Bilateral lower extremity: normal superficial and deep exam. Recommendations: Test completed on 06/11/2016 at 10:25:50 am. Findings Prior Study: No prior study available for comparison. Lower Extremity Venous Duplex Side Vein Compress Spontaneous Flow Augment Diameter (cm) Depth (cm) Right Distal Iliac Normal Yes Phasic Yes Right Common Femoral Normal Yes Phasic Yes Right Superficial Femoral Normal Yes Phasic Yes Right Popliteal Normal Yes Phasic Yes Right Posterior Tibial Normal Yes Phasic Yes Right Peroneal Normal Yes Phasic Yes Right Lesser Saphenous Normal Yes Phasic Yes Left Distal Iliac Normal Yes Phasic Yes Left Common Femoral Normal Yes Phasic Yes Left Superficial Femoral Normal Yes Phasic Yes Left Popliteal Normal Yes Phasic Yes Left Posterior Tibial Normal Yes Phasic Yes Left Peroneal Normal Yes Phasic Yes Left Lesser Saphenous Normal Yes Phasic Yes Updated by Brandon Schaeffer MD, FACS on 06/12/2016 1:20:09 PM Brandon Schaeffer MD electronically signed on 06/12/2016 1:20:48 PM with status of Final
== END 2016-06-11 16:50 ==
LOC: EMEROO 15:06 → 3BNU 15:06 → SUATTDRO 18:16 → 3BNU 18:42
PROVIDERS: ADMIT Internal Medicine; ATTEND Internal Medicine

== ENCOUNTER 2017-01-14 09:46 | Observation (INO) ==
--- NOTE | 2017-01-14 09:57 | Emergency Department Note ---
Disposition Clinical Impression: CKD (chronic kidney disease) stage 3, GFR 30-59 ml/min Hypertension Qualifiers: Hypertension type: unspecified Qualified Code(s): I10 - Essential (primary) hypertension Fall Qualifiers: Encounter type: initial encounter Qualified Code(s): W19.XXXA - Unspecified fall, initial encounter Facial laceration Qualifiers: Encounter type: initial encounter Qualified Code(s): S01.81XA - Laceration without foreign body of other part of head, initial encounter Disposition: Admitted As Inpatient Condition: Undetermined Time of Disposition: 13:08 Fall HPI - General Chief Complaint: ED Fall Stated Complaint: fall Time Seen by Provider: 01/14/17 09:50 Source: EMS Mode of arrival: EMS Limitations: altered mental status Nursing Notes Reviewed: Yes Vital Signs Reviewed: Yes - History of Present Illness HPI Narrative: 81-year-old female with history of dementia with an apparent ground-level fall coming from [facility] after being found on the edge of the bed with facial abrasion as well as left orbital hematoma. The patient was also noted by EMS to have an outward rotated left hip with tenderness on palpation of the left hip as well as the left knee. The patient was apparently in and out of consciousness per what EMS stated. Upon arrival to the emergency department she is not answering questions appropriately with the exception of her name. This is apparently baseline per EMS. The patient is alert and answering questions. Glucose was in the mid 100s. Pt Subjective Complaint: fall Onset (ago): unknown Fall From: standing Fall Witnessed: no Place Fall Occurred: alf/SNF Loss of Consciousness: unsure Prolonged Down Time?: unclear Context: unknown Location of injury: head, face Location of injury - extremities: Left: hip, knee Severity: unable - Related Data Home Medications Medication Instructions Recorded Confirmed Aspirin 81 mg PO HS 11/11/15 01/14/17 Cholecalciferol (D-3) [Vitamin D] 1,000 unit PO DAILY #0 11/11/15 01/14/17 Docusate [Colace] 100 mg PO BID PRN #0 11/11/15 01/14/17 Fluticasone Propionate Nasal 100 mcg NS DAILY PRN 11/11/15 01/14/17 [Flonase] Memantine HCl 10 mg PO BID #0 11/11/15 01/14/17 Multivitamin-Min/Iron/FA/Vit K 1 each PO DAILY 11/11/15 01/14/17 [Multi-Day Plus Minerals Tablet] OLANZapine [Zyprexa] 5 mg PO HS 11/11/15 01/14/17 Omeprazole 40 mg PO BID 11/11/15 01/14/17 Polyethylene Glycol 3350 [MiraLAX] 17 gm PO BID 11/11/15 01/14/17 Potassium Chloride [K-Tab ER] 10 meq PO DAILY #0 11/11/15 01/14/17 Promethazine [Phenergan] 25 mg PO Q6H PRN 11/11/15 01/14/17 Melatonin 10 mg PO HS 01/10/16 01/14/17 Donepezil [Aricept] 10 mg PO HS 01/19/16 01/14/17 Menthol [Biofreeze] 1 appl TP TID PRN 02/24/16 01/14/17 Oxybutynin Chloride [Ditropan Xl] 5 mg PO DAILY 02/24/16 01/14/17 Calcium Carbonate/Vitamin D3 1 each PO TID 04/06/16 01/14/17 [Calcium 600+D Softgel] Acetaminophen [Tylenol] 325 mg PO Q6HR PRN 06/11/16 01/14/17 Furosemide [Lasix] 20 mg PO DAILY 06/11/16 01/14/17 MOM Conc [MILK OF MAGNESIA conc] 30 ml PO DAILY PRN 06/11/16 01/14/17 Metoclopramide [Reglan] 10 mg PO QID 06/11/16 01/14/17 Vitamin B Complex 1 each PO DAILY 06/11/16 01/14/17 Dextromethorphan HBr/Quinidine 1 tab PO BID 01/14/17 01/14/17 [Nuedexta 20-10 mg Capsule] LORazepam [Ativan] 0.5 mg PO BID 01/14/17 01/14/17 Latanoprost [Xalatan] 1 drop BOTH EYES HS 01/14/17 01/14/17 Previous Rx's Medication Instructions Recorded Atorvastatin [Lipitor] 40 mg PO HS tablet 02/28/16 Folic Acid 1 mg PO DAILY tablet 02/28/16 Lisinopril [Zestril] 2.5 mg PO DAILY #0 02/28/16 Metoprolol XL (24 HR) Succ [Toprol 50 mg PO BID tab.er.24h 02/28/16 Xl] Thiamine (B-1) [Vitamin B-1] 100 mg PO DAILY tablet 02/28/16 Allergies Allergy/AdvReac Type Severity Reaction Status Date / Time clarithromycin Allergy Hives Verified 01/14/17 12:31 codeine Allergy Hives Verified 01/14/17 12:31 hydrocodone [From Lortab] Allergy Hives Verified 01/14/17 12:31 ketorolac Allergy Hives Verified 01/14/17 12:31 Penicillins Allergy Hives Verified 01/14/17 12:31 ivp dye Allergy Anaphylaxis Uncoded 11/10/15 21:04 Limitations: ROS unobtainable due to patients medical condition Fall PMH - Past Medical History Medical history: Reports: asthma, cancer, CHF, COPD, coronary artery disease, dementia, GERD, hyperlipidemia, hypertension, TIA, other Surgical history: Reports: appendectomy, cholecystectomy, hysterectomy, knee replacement, other Psychiatric history: Reports: schizophrenia, other [employer] history: Reports: no [employer] history - Social History Smoking Status: Never smoker Alcohol use: Reports: none Drug use: Reports: none Physical Exam - General Limitations: altered mental status (Baseline according to historian) General appearance: alert - Head Head exam: other (Left zygomatic process abrasion, left periorbital hematoma) - Eye Eye exam: Present: PERRL, EOMI, periorbital swelling, periorbital tenderness - ENT ENT exam: normal exam, normal oropharynx, mucous membranes moist - Neck Neck exam: Present: normal inspection, full ROM, trachea midline - Chest Chest inspection: Present: normal inspection, symmetric chest wall rise - Respiratory Respiratory exam: Present: normal lung sounds bilaterally - Cardiovascular Cardiovascular exam: Present: regular rate, normal rhythm, normal heart sounds - Abdominal Exam Abdominal exam: Present: soft, Non-Tender. Absent: tenderness, distention, guarding, rebound, rigidity - Extremities Exam Extremities exam: Present: tenderness (2 left hip as well as left knee. Left lower extremity is externally rotated and shortened slightly when compared to the right. Difficult to assess due to amount of tenderness in left knee.) - Neurological Exam Neurological exam: Present: alert - Expanded Neurological Exam Patient oriented to: Present: person Speech: Present: fluid speech Cranial nerves: EOM function (II, III, IV, ): Normal Coma Scale Eye Opening: Spontaneous Coma Scale Motor Response: Obeys Commands Coma Scale Verbal Response: Confused Coma Scale Total: 14 - Skin Skin exam: Present: other (Left zygomatic process abrasion that is roughly 2.5 cm in length superficial. No active bleeding noted at this time, left periorbital hematoma) Course Vital Signs Temperature 98.1 F 01/14/17 09:48 Pulse Rate 54 01/14/17 09:48 Respiratory Rate 22 01/14/17 09:48 Blood Pressure 125/102 01/14/17 09:48 O2 Sat by Pulse Oximetry 94 01/14/17 09:48 Temperature 98.1 F 01/14/17 09:48 Pulse Rate 56 01/14/17 12:15 Respiratory Rate 18 01/14/17 13:42 Blood Pressure 180/80 01/14/17 13:42 O2 Sat by Pulse Oximetry 95 01/14/17 12:15 Oxygen Delivery Oxygen Delivery Nasal Cannula Procedures - Laceration Laceration 1 Site: face Side (If applicable): left Description: linear Depth: simple, single layer Local Anesthetic: lidocaine 2%, with epi Amount of Anesthesia Used (mL): 2 Pre-repair: irrigated extensively, deep structures intact Skin layer closed with: nylon Size: 6-0 Number of sutures/cristiano: 7 Technique: simple, interrupted Fall - MDM Narrative Medical decision making narrative: Patient's workup here in the emergency department demonstrated no acute findings on imaging to include head CT and cervical spine CT. The patient did have an unwitnessed fall and with her baseline mental status, we do not feel comfortable sending the patient back to [facility] at this time. We feel as though she needs to be observed. The etiology of her fall is unknown. The patient does have a previous history of CVA and this may be a contributing factor to why she fell. We treated the patient with by mouth antihypertensive because we did not feel comfortable treating the patient with an IV medication at this time with concern for her already bradycardic heart rate. The patient demonstrates no chest pain or end organ damage associated with her hypertension. At this time we felt it more comfortable to treat her with by mouth medication. We will admit the patient to the hospital for further workup and care with concern for possible etiology of her fall and given the fact that she is unable to give a proper history for the events surrounding the fall. The patient will be admitted to the hospitalist service, accepted by Dr. Burns. - Lab Data Lab results reviewed: Yes I reviewed the patient's lab results. Result diagrams: 01/14/17 10:22 01/14/17 10:22 Lab Results 01/14/17 01/14/17 01/14/17 Range/Units 10:22 10:22 10:22 WBC 7.1 (4.3-11.1) K/mcL RBC 3.73 L (3.82-4.97) M/mcL Hgb 11.4 L (11.5-15.4) g/dL Hct 35.8 (35.3-44.9) % MCV 96.0 (83.0-100.0) fL MCH 30.6 (28.0-33.3) pg MCHC 31.8 (31.6-35.5) g/dL RDW 13.1 (11.5-14.5) % Plt Count 193 (140-400) K/mcL MPV 9.5 (9.4-12.4) fL Immature Gran % 0.3 (0-4) % Seg Neutrophils % 56.0 % Lymphocytes % 25.5 % Monocytes % 12.3 % Eosinophils % 5.2 % Basophils % 0.7 % Neutrophils # 3.9 (1.6-8.9) K/mcL Lymphocytes # 1.8 (0.6-4.6) K/mcL Monocytes # 0.9 (0.0-1.3) K/mcL Eosinophils # 0.4 (0.0-0.6) K/mcL Basophils # 0.1 (0.0-0.2) K/mcL PT 13.1 H (9.4-12.1) Seconds INR 1.2 APTT 31.2 (26.0-36.0) Seconds Sodium 138 (136-145) mEq/L Potassium 4.8 H (3.5-4.5) mEq/L Chloride 107 (98-109) mEq/L Carbon Dioxide 23 (19-29) mEq/L BUN 40 H (7-20) mg/dL Creatinine 1.57 H (0.57-1.11) mg/dL Est GFR ( Amer) 38 L (> 60) Est GFR (Non-Af Amer) 31 L (> 60) BUN/Creatinine Ratio 25 (6-26) Glucose 95 (70-99) mg/dL Calculated Osmolality 296 (280-300) Calcium 9.6 (8.6-10.8) mg/dL Troponin I (0-0.03) ng/mL Urine Color (Yellow) Urine Clarity (Clear) Urine pH (5.0-8.0) pH Units Ur Specific [place] (1.010-1.025) Urine Protein (Neg-Trace) mg/dL Urine Glucose (UA) (Normal) mg/dL Urine Ketones (Negative) mg/dL Urine Blood (Negative) Urine Nitrite (Negative) Urine Bilirubin (Negative) Urine Urobilinogen (Normal) mg/dL Ur Leukocyte Esterase (Negative) Urine Microscopic RBC (0-3) per hpf Urine Microscopic WBC (0-3) per hpf Ur Squamous Epith Cells (None-Few) per lpf Urine Bacteria (None-Few) per hpf Hyaline Casts (None-Few) per lpf Ur Culture Indicated? (NO) 01/14/17 01/14/17 Range/Units 10:22 12:48 WBC (4.3-11.1) K/mcL RBC (3.82-4.97) M/mcL Hgb (11.5-15.4) g/dL Hct (35.3-44.9) % MCV (83.0-100.0) fL MCH (28.0-33.3) pg MCHC (31.6-35.5) g/dL RDW (11.5-14.5) % Plt Count (140-400) K/mcL MPV (9.4-12.4) fL Immature Gran % (0-4) % Seg Neutrophils % % Lymphocytes % % Monocytes % % Eosinophils % % Basophils % % Neutrophils # (1.6-8.9) K/mcL Lymphocytes # (0.6-4.6) K/mcL Monocytes # (0.0-1.3) K/mcL Eosinophils # (0.0-0.6) K/mcL Basophils # (0.0-0.2) K/mcL PT (9.4-12.1) Seconds INR APTT (26.0-36.0) Seconds Sodium (136-145) mEq/L Potassium (3.5-4.5) mEq/L Chloride (98-109) mEq/L Carbon Dioxide (19-29) mEq/L BUN (7-20) mg/dL Creatinine (0.57-1.11) mg/dL Est GFR ( Amer) (> 60) Est GFR (Non-Af Amer) (> 60) BUN/Creatinine Ratio (6-26) Glucose (70-99) mg/dL Calculated Osmolality (280-300) Calcium (8.6-10.8) mg/dL Troponin I 0.01 (0-0.03) ng/mL Urine Color Yellow (Yellow) Urine Clarity Clear (Clear) Urine pH 6.0 (5.0-8.0) pH Units Ur Specific [place] 1.009 L (1.010-1.025) Urine Protein Negative (Neg-Trace) mg/dL Urine Glucose (UA) Normal (Normal) mg/dL Urine Ketones Negative (Negative) mg/dL Urine Blood Small H (Negative) Urine Nitrite Negative (Negative) Urine Bilirubin Negative (Negative) Urine Urobilinogen Normal (Normal) mg/dL Ur Leukocyte Esterase Trace H (Negative) Urine Microscopic RBC 0-3 (0-3) per hpf Urine Microscopic WBC 0-3 (0-3) per hpf Ur Squamous Epith Cells Moderate H (None-Few) per lpf Urine Bacteria Few (None-Few) per hpf Hyaline Casts None Seen (None-Few) per lpf Ur Culture Indicated? YES A (NO) - Radiology Data Radiology results reviewed: Yes I reviewed the patient's radiology results. - EKG Data EKG attestation: Yes I reviewed and interpreted this EKG. EKG results narrative: Heart rate 53 bpm. CO interval 167 ms. QTc 423 ms. Normal axis. Sinus bradycardia. No ST elevation or ST depression noted. Nonspecific changes noted from EKG from 12/16/2016. Attestation Statement - Attestation Attestation: I, Uche Cardenas, examined this patient and my medical decision-making was reviewed with the SALES LEADER/PA/Advanced Practice Nurse/Resident Physician. I agree with the documented findings, disposition and treatment plan as described except to the extent set forth below. 81-year-old female presents emergency Department after an unwitnessed fall at the alf. Patient is in the dementia unit and is unable to give a history regarding her case and presentation. Patient has laceration to the left face from the fall which was sutured by the resident. CT of the head and neck are negative for acute fracture or intracranial hemorrhage. Patient had a significantly elevated blood pressure during evaluation the emergency department. She denied chest pain, she had pain to the left face over the laceration. EKG showed sinus bradycardia with a rate of 53 without evidence of STEMI or ischemia. Initial troponin was negative. It is unclear whether she took her home dose of metoprolol prior to evaluation emergency department. Patient given her home dose of metoprolol, 50 mg by mouth extended release metoprolol, with improvement of her blood pressure. Resident's fall was unwitnessed. Family does not feel comfortable placing return home. Patient will be admitted to the hospital for further care and evaluation of her unwitnessed fall as well as tighter control of her blood pressure.
[2017-01-14 10:32] LABS: Basophils # 0.1 K/mcL (0.0-0.2); Basophils % 0.7 %; Eosinophils # 0.4 K/mcL (0.0-0.6); Eosinophils % 5.2 %; Hematocrit 35.8 % (35.3-44.9); Hemoglobin 11.4 g/dL (11.5-15.4); Immature Granulocytes % 0.3 % (0-4); Lymphocytes # 1.8 K/mcL (0.6-4.6); Lymphocytes % 25.5 %; Mean Corpuscular HGB Conc 31.8 g/dL (31.6-35.5); Mean Corpuscular Hemoglobin 30.6 pg (28.0-33.3); Mean Platelet Volume 9.5 fL (9.4-12.4); Monocytes # 0.9 K/mcL (0.0-1.3); Monocytes % 12.3 %; Neutrophils # 3.9 K/mcL (1.6-8.9); Platelet Count 193 K/mcL (140-400); Red Blood Count 3.73 M/mcL (3.82-4.97); Red Cell Distribution Width 13.1 % (11.5-14.5)
[2017-01-14] MEDS ORDERED: *HR* FentaNYL (PF) 100 MCG/2 ML VIAL IVP ONE ×3 (10:33→11:27)
[2017-01-14 10:43] LABS: Calcium 9.6 mg/dL (8.6-10.8); Potassium 4.8 mEq/L (3.5-4.5)
[2017-01-14 10:54] LABS: INR 1.2; Prothrombin Time 13.1 Seconds (9.4-12.1)
[2017-01-14 10:57] LABS: Activated Partial Thrombo Time 31.2 Seconds (26.0-36.0)
[2017-01-14] MEDS ORDERED: Nitroglycerin 0.4 MG TAB.SUBL SL STA (11:32)
[2017-01-14] MEDS ORDERED: Metoprolol XL (24 HR) Succ 50 MG TAB.ER.24H PO STA (11:36)
[2017-01-14] MEDS ORDERED: Lidocaine/EPI 1:100k 2% 20 ML VIAL INFILT ONE (12:11)
[2017-01-14 13:02] LABS: Bilirubin,Urine Negative (Negative); Blood,Urine Small (Negative); Color,Urine Yellow (Yellow); Glucose,Urine (UA) Normal (Normal); Ketones,Urine Negative (Negative); Leukocyte Esterase,Urine Trace (Negative); Nitrite,Urine Negative (Negative); Protein,Urine Negative (Neg-Trace); Specific Gravity,Urine 1.009 (1.010-1.025); Urobilinogen,Urine Normal (Normal)
[2017-01-14 13:04] LABS: Bacteria,Urine Few per hpf (None-Few); Hyaline Casts,Urine None Seen per lpf (None-Few); Squamous Epithelial Cell,Urine Moderate per lpf (None-Few); WBC,Urine 0-3 per hpf (0-3)
[2017-01-14 13:13] LABS: Clarity,Urine Clear (Clear)
[2017-01-14 13:22] LABS: RBC,Urine 0-3 per hpf (0-3)
[2017-01-14] MEDS ORDERED: *HR* Morphine 2 MG/ML SYRINGE IVP PRN (13:31)
[2017-01-14] MEDS ORDERED: Naloxone 0.4 MG/ML INJ IVP PRN (13:31)
[2017-01-14] MEDS ORDERED: Fluticasone Propionate Nasal 50 MCG/SPRAY BOTTLE NS PRN (13:36)
[2017-01-14] MEDS ORDERED: 0.9 % Sodium Chloride 1,000 ML IVC SCH (13:45)
--- NOTE | 2017-01-14 14:13 | Internal Med History&Physical ---
<Clary Sierra - Last Filed: 01/14/17 18:44> Date of Encounter: 01/14/17 Time of Encounter: 14:08 Assessment and Plan (1) Fall Current visit: Yes Status: Acute Patient had unwitnessed fall at her ECF with trauma to face. She does not recall incident, so unable to determine if mechanical. She is complaining of feeling dizzy and is bradycardic, so may have been syncope. continuous lunchroom monitor serial troponins echocardiogram carotid dopplers MRI Head/brain PT/OT consults SWK consult. Qualifiers: Encounter type: initial encounter Qualified Code(s): W19.XXXA - Unspecified fall, initial encounter (2) Ocpxg-[id number]-[id number] kidney injury Current visit: Yes Status: Acute BUN of 40 and Cr of 1.57 today, up from previous creatinine of 1.41. UA was not concerning for infection. We are hydrating patient and will recheck chemistry daily. We are increasing her lisinopril for blood pressure control, but as creatinine increase from previous was only 11%, we feel the benefit outweighs the risk. Qualifiers: Acute renal failure type: unspecified Chronic kidney disease stage: stage 3 (moderate) Qualified Code(s): N17.9 - Acute kidney failure, unspecified; N18.3 - Chronic kidney disease, stage 3 (moderate) (3) Hypertension Current visit: Yes Status: Acute Patient hypertensive since arrival with blood pressures 200s/100s. She was given 50mg Metoprolol ER in ED. Hypertension may be exacerbated due to pain. Will hold metoprolol due to bradycardia, increase lisinopril and give dose today. Continue other home medications, control pain and add Hydralazine 10mg IVP PRN. Qualifiers: Hypertension type: essential hypertension Qualified Code(s): I10 - Essential (primary) hypertension (4) Bradycardia Current visit: Yes Status: Acute Patient has been bradycardic with HR in the 50s since arrival. She is here for an unwitnessed fall, and bradycardia may have been a contributing factor to the fall. She is also reporting light headedness. She was given 50mg ER metoprolol by the ED for her blood pressure. Will hold home dose of metoprolol. Continuous lunchroom monitor IV fluids 0.9NS at 100mL/hr echocardiogram carotid dopplers (5) Dementia Current visit: Yes Status: Acute Patient has diagnosis of dementia and is Alert and oriented to self only at baseline. She is able to follow directions and answers questions appropriately. Continue home doses of Memantine and Aricept. Qualifiers: Dementia type: unspecified type Dementia behavioral disturbance: without behavioral disturbance Qualified Code(s): F03.90 - Unspecified dementia without behavioral disturbance (6) Head injury Current visit: Yes Status: Acute Patient suffered fall at her ECF with facial trauma. She had swelling, ecchymosis surrounding her left eye as well as a left cheek laceration. Head CT was negative for acute intracranial abnormality. Face CT was negative for any fractures. Patient's laceration was sutured in ED. Will get MRI of head/ brain. Qualifiers: Encounter type: initial encounter Qualified Code(s): S09.90XA - Unspecified injury of head, initial encounter (7) DVT prophylaxis Current visit: Yes Status: Acute Sequential compression devices. Will hold off on anticoagulation due to recent facial trauma. Internal Medicine - H&P: HPI Chief complaint: fall Admitted From: Emergency Dept Plans for Post Hospital Care: Home History of present illness: Ms. Almendarez is a 81 year old female with dementia, COPD, coronary artery disease, hypertension, hyperlipidemia, TIA, chronic pain was sent to the emergency department from her extended care facility after an unwitnessed fall. Patient was found this morning with a facial abrasion and left orbital hematoma. Patient is alert and oriented 1 at baseline, does not recall the fall at home. She does report feeling dizzy, tired, and she has a headache. She reports pain all over otherwise is well. She denies any palpitations or shortness of breath. She denies any fever, chills or sweats. She denies any nausea vomiting or diarrhea. Evaluation in the emergency department included imaging of the left knee and hip which showed no fractures. Head CT showed no acute intracranial abnormality malady, preseptal soft tissue swelling of the left orbit. Cervical neck CT showed no acute fracture or abnormality. She was in AKA with BUN of 40 and creatinine of 1.57 up from previous value of 1.41. She was mildly hyperkalemic with potassium of 4.8. Troponin was negative at 0.01. UA was not concerning for infection. Patient was hypertensive with blood pressures running in the 200s over 100s. She was also bradycardic with heart rate in the 50s patient's left facial laceration was sutured in the emergency department. She was given fentanyl for pain and was given extended release metoprolol for her blood pressure. On exam, patient alert and oriented times one, she does answer questions appropriately. She has swelling and ecchymosis surrounding her left eye and over her left cheek. She has a 5 cm laceration under her left eye with sutures in place. Heart has bradycardic rhythm with systolic murmur. Lungs are clear bilaterally to auscultation. Abdomen is soft , nontender with active bowel sounds. No peripheral edema. Past Med Surg Social Fam HX - Past Medical History Medical history: asthma, cancer, CHF, COPD, coronary artery disease, dementia, GERD, hyperlipidemia, hypertension, TIA, other Psychiatric history: schizophrenia, other - Past Surgical History Surgical History: appendectomy, cholecystectomy, hysterectomy, knee replacement , other - Social History Smoking Status: Never smoker Smokeless Tobacco Status: No Alcohol use: none Drug use: none - Family History Mother Family Member Ethnicity: Non- Living Status: Cause of : HI Hx Family Cardiac Disorders: Yes (HTN) Hx Family Endocrine Disorder: Yes (insulin dependent) Father Living Status: Age at : 97 Cause of : CVA Internal Medicine - H&P: Meds Aspirin 81 mg PO HS 11/11/15 [History] Cholecalciferol (D-3) [Vitamin D] 1,000 unit PO DAILY #0 11/11/15 [History] Docusate [Colace] 100 mg PO BID PRN #0 11/11/15 [History] Fluticasone Propionate Nasal [Flonase] 100 mcg NS DAILY PRN 11/11/15 [History] Memantine HCl 10 mg PO BID #0 11/11/15 [History] Multivitamin-Min/Iron/FA/Vit K [Multi-Day Plus Minerals Tablet] 1 each PO DAILY 11/11/15 [History] OLANZapine [Zyprexa] 5 mg PO HS 11/11/15 [History] Omeprazole 40 mg PO BID 11/11/15 [History] Polyethylene Glycol 3350 [MiraLAX] 17 gm PO BID 11/11/15 [History] Potassium Chloride [K-Tab ER] 10 meq PO DAILY #0 11/11/15 [History] Promethazine [Phenergan] 25 mg PO Q6H PRN 11/11/15 [History] Melatonin 10 mg PO HS 01/10/16 [History] Donepezil [Aricept] 10 mg PO HS 01/19/16 [History] Menthol [Biofreeze] 1 appl TP TID PRN 02/24/16 [History] Oxybutynin Chloride [Ditropan Xl] 5 mg PO DAILY 02/24/16 [History] Atorvastatin [Lipitor] 40 mg PO HS tablet 02/28/16 [Rx] Folic Acid 1 mg PO DAILY tablet 02/28/16 [Rx] Lisinopril [Zestril] 2.5 mg PO DAILY #0 02/28/16 [Rx] Metoprolol XL (24 HR) Succ [Toprol Xl] 50 mg PO BID tab.er.24h 02/28/16 [Rx] Thiamine (B-1) [Vitamin B-1] 100 mg PO DAILY tablet 02/28/16 [Rx] Calcium Carbonate/Vitamin D3 [Calcium 600+D Softgel] 1 each PO TID 04/06/16 [ History] Acetaminophen [Tylenol] 325 mg PO Q6HR PRN 06/11/16 [History] Furosemide [Lasix] 20 mg PO DAILY 06/11/16 [History] MOM Conc [MILK OF MAGNESIA conc] 30 ml PO DAILY PRN 06/11/16 [History] Metoclopramide [Reglan] 10 mg PO QID 06/11/16 [History] Vitamin B Complex 1 each PO DAILY 06/11/16 [History] Dextromethorphan HBr/Quinidine [Nuedexta 20-10 mg Capsule] 1 tab PO BID [History] LORazepam [Ativan] 0.5 mg PO BID 01/14/17 [History] Latanoprost [Xalatan] 1 drop BOTH EYES HS 01/14/17 [History] 3 Allergy/AdvReac Type Severity Reaction Status Date / Time clarithromycin Allergy Hives Verified 01/14/17 12:31 codeine Allergy Hives Verified 01/14/17 12:31 hydrocodone [From Lortab] Allergy Hives Verified 01/14/17 12:31 ketorolac Allergy Hives Verified 01/14/17 12:31 Penicillins Allergy Hives Verified 01/14/17 12:31 ivp dye Allergy Anaphylaxis Uncoded 11/10/15 21:04 All Systems PM: A 10-system review of systems was performed and is negative for pertinent findings except as documented above in the HPI. - Constitutional Constitutional: fatigue, falls, no chills, no fever(s), no night sweats - EENT Eyes: no change in vision, no discharge, no pain, no photophobia Ears: no ear discharge, no ear pain, no tinnitus Nose, mouth and throat: no dysphagia, no nasal discharge, no neck pain, no sore throat - Cardiovascular Cardiovascular ROS IM: lightheadedness, no chest pain, no diaphoresis, no dyspnea, no palpitations, no syncope - Respiratory Respiratory: no cough, no dyspnea, no wheezing, no excessive phlegm production - Gastrointestinal Gastrointestinal: no abdominal pain, no diarrhea, no hematemesis, no hematochezia, no melena, no nausea, no vomiting - Genitourinary Genitourinary: no change in urinary stream, no dysuria, no flank pain, no hematuria - Musculoskeletal Musculoskeletal ROS IM: no numbness, no tingling - Integumentary Integumentary IM: no rash, no unusual bruising - Neurological Neurological ROS: no confusion, no convulsions, no focal weakness, no numbness, no tingling, no tremor(s) - Hematologic/Lymphatic Hematologic/Lymphatic: no easy bruising - Constitutional Vitals: Temp Pulse Resp BP Pulse Ox 98.1 F 56 18 180/80 95 01/14/17 09:48 01/14/17 12:15 01/14/17 13:42 01/14/17 13:42 01/14/17 12:15 General appearance: Present: cooperative, A&O X 1, pleasant, no acute distress, answers questions appropriately - Head Head exam: Present: normocephalic. Absent: atraumatic Additional comments: Swelling and ecchymosis surrounding left eye and down left cheek. 5cm horizontal laceration to left cheek, sutures in place. - Eye Eye exam: Present: periorbital swelling (left), periorbital tenderness (left), PERRL, conjuntiva pink, sclera anicteric Pupils: Present: PERRL - Neck Neck exam general surgery: Present: supple, trachea midline. Absent: lymphadenopathy - Respiratory Respiratory exam: Present: CTAB. Absent: accessory muscle use, rales, rhonchi, wheezes - Cardiovascular Cardiovascular exam: Present: bradycardia, RRR, +S1, +S2, systolic murmur. Absent: diastolic murmur, gallop, rubs - GI/Abdominal GI/Abdominal exam: Present: normal bowel sounds, soft, no peritoneal signs. Absent: distended, tenderness - Extremities Exam Extremities exam: Present: warm, radial pulses palpable and symmetrical. Absent : calf tenderness, cyanotic, pedal edema - Neurological Exam Neurological exam: Present: CN II-XII intact, oriented X3, no focal deficits. Absent: pronater drift, facial droop, speech deficit - Skin Skin exam: Present: dry, intact Internal Med - H&P Results - Labs CBC & Chem 7: 01/14/17 10:22 01/14/17 10:22 Labs: All Lab Results (24 Hours) 01/14/17 01/14/17 01/14/17 Range/Units 10:22 10:22 10:22 WBC 7.1 (4.3-11.1) K/mcL RBC 3.73 L (3.82-4.97) M/mcL Hgb 11.4 L (11.5-15.4) g/dL Hct 35.8 (35.3-44.9) % MCV 96.0 (83.0-100.0) fL MCH 30.6 (28.0-33.3) pg MCHC 31.8 (31.6-35.5) g/dL RDW 13.1 (11.5-14.5) % Plt Count 193 (140-400) K/mcL MPV 9.5 (9.4-12.4) fL Immature Gran % 0.3 (0-4) % Seg Neutrophils % 56.0 % Lymphocytes % 25.5 % Monocytes % 12.3 % Eosinophils % 5.2 % Basophils % 0.7 % Neutrophils # 3.9 (1.6-8.9) K/mcL Lymphocytes # 1.8 (0.6-4.6) K/mcL Monocytes # 0.9 (0.0-1.3) K/mcL Eosinophils # 0.4 (0.0-0.6) K/mcL Basophils # 0.1 (0.0-0.2) K/mcL PT 13.1 H (9.4-12.1) Seconds INR 1.2 APTT 31.2 (26.0-36.0) Seconds Sodium 138 (136-145) mEq/L Potassium 4.8 H (3.5-4.5) mEq/L Chloride 107 (98-109) mEq/L Carbon Dioxide 23 (19-29) mEq/L BUN 40 H (7-20) mg/dL Creatinine 1.57 H (0.57-1.11) mg/dL Est GFR ( Amer) 38 L (> 60) Est GFR (Non-Af Amer) 31 L (> 60) BUN/Creatinine Ratio 25 (6-26) Glucose 95 (70-99) mg/dL Calculated Osmolality 296 (280-300) Calcium 9.6 (8.6-10.8) mg/dL Troponin I (0-0.03) ng/mL Urine Color (Yellow) Urine Clarity (Clear) Urine pH (5.0-8.0) pH Units Ur Specific [place] (1.010-1.025) Urine Protein (Neg-Trace) mg/dL Urine Glucose (UA) (Normal) mg/dL Urine Ketones (Negative) mg/dL Urine Blood (Negative) Urine Nitrite (Negative) Urine Bilirubin (Negative) Urine Urobilinogen (Normal) mg/dL Ur Leukocyte Esterase (Negative) Urine Microscopic RBC (0-3) per hpf Urine Microscopic WBC (0-3) per hpf Ur Squamous Epith Cells (None-Few) per lpf Urine Bacteria (None-Few) per hpf Hyaline Casts (None-Few) per lpf Ur Culture Indicated? (NO) 01/14/17 01/14/17 Range/Units 10:22 12:48 WBC (4.3-11.1) K/mcL RBC (3.82-4.97) M/mcL Hgb (11.5-15.4) g/dL Hct (35.3-44.9) % MCV (83.0-100.0) fL MCH (28.0-33.3) pg MCHC (31.6-35.5) g/dL RDW (11.5-14.5) % Plt Count (140-400) K/mcL MPV (9.4-12.4) fL Immature Gran % (0-4) % Seg Neutrophils % % Lymphocytes % % Monocytes % % Eosinophils % % Basophils % % Neutrophils # (1.6-8.9) K/mcL Lymphocytes # (0.6-4.6) K/mcL Monocytes # (0.0-1.3) K/mcL Eosinophils # (0.0-0.6) K/mcL Basophils # (0.0-0.2) K/mcL PT (9.4-12.1) Seconds INR APTT (26.0-36.0) Seconds Sodium (136-145) mEq/L Potassium (3.5-4.5) mEq/L Chloride (98-109) mEq/L Carbon Dioxide (19-29) mEq/L BUN (7-20) mg/dL Creatinine (0.57-1.11) mg/dL Est GFR ( Amer) (> 60) Est GFR (Non-Af Amer) (> 60) BUN/Creatinine Ratio (6-26) Glucose (70-99) mg/dL Calculated Osmolality (280-300) Calcium (8.6-10.8) mg/dL Troponin I 0.01 (0-0.03) ng/mL Urine Color Yellow (Yellow) Urine Clarity Clear (Clear) Urine pH 6.0 (5.0-8.0) pH Units Ur Specific [place] 1.009 L (1.010-1.025) Urine Protein Negative (Neg-Trace) mg/dL Urine Glucose (UA) Normal (Normal) mg/dL Urine Ketones Negative (Negative) mg/dL Urine Blood Small H (Negative) Urine Nitrite Negative (Negative) Urine Bilirubin Negative (Negative) Urine Urobilinogen Normal (Normal) mg/dL Ur Leukocyte Esterase Trace H (Negative) Urine Microscopic RBC 0-3 (0-3) per hpf Urine Microscopic WBC 0-3 (0-3) per hpf Ur Squamous Epith Cells Moderate H (None-Few) per lpf Urine Bacteria Few (None-Few) per hpf Hyaline Casts None Seen (None-Few) per lpf Ur Culture Indicated? YES A (NO) - Diagnostic Studies CT scan - head Additional comments: Head CT 01/14/17 09:51 IMPRESSION: Preseptal soft tissue swelling left orbit. No acute intracranial abnormality seen. D/ / 01/14/2017 11:13:46 Uriel Reynoso MD / collins Interpreting Provider: Uriel Reynoso MD Cervical Spine CT 01/14/17 09:52 IMPRESSION: No acute abnormality of the cervical spine. D/ / Brandon De Los Santos MD / Brandon De Los Santos MD Interpreting Provider: Brandon De Los Santos MD Face CT 01/14/17 09:52 IMPRESSION: No acute osseous injury of the face. Preseptal soft tissue swelling left orbit. D/ / 01/14/2017 11:19:13 Uriel Reynoso MD / liza Interpreting Provider: Uriel Reynoso MD Other Images Additional comments: Hip X-Ray 01/14/17 09:52 IMPRESSION: No displaced pelvic or left proximal femoral fracture D/ / Nura Kendrick MD / Nura Kendrick MD Interpreting Provider: Nura Kendrick MD Knee X-Ray 01/14/17 09:52 IMPRESSION: Stable right knee arthroplasty. No acute osseous abnormality. D/ / 01/14/2017 12:18:56 Bob Prince MD / shahriar Interpreting Provider: Bob Prince MD <Kaveh Burns - Last Filed: 01/14/17 18:53> Date of Encounter: 01/14/17 Internal Medicine - H&P: HPI History of present illness: Ms. Almendarez is a 81 year old female All Systems PM: A 10-system review of systems was performed and is negative for pertinent findings except as documented above in the HPI. - Constitutional Vitals: Temp Pulse Resp BP Pulse Ox 98 F 57 16 186/89 97 01/14/17 16:47 01/14/17 16:47 01/14/17 16:47 01/14/17 16:47 01/14/17 16:47 Internal Med - H&P Results - Labs CBC & Chem 7: 01/14/17 10:22 01/14/17 10:22 - Attending Attestation I have personally performed a face to face evaluation on this patient and I discussed the assessment and plan with the nurse practitioner. I have reviewed and agree with the documented care plan. History and Exam by me shows: Ms. Almendarez is a 81 year old female with dementia, COPD, coronary artery disease, hypertension, hyperlipidemia, TIA, chronic pain was sent to the emergency department from her extended care facility after an unwitnessed fall. Patient was found this morning with a facial abrasion and left orbital hematoma. Patient is alert and oriented 1 at baseline, does not recall the fall at home. She does report feeling dizzy, tired, and she has a headache. She reports pain all over otherwise is well. She denies any palpitations or shortness of breath. She denies any fever, chills or sweats. She denies any nausea vomiting or diarrhea. Evaluation in the emergency department included imaging of the left knee and hip which showed no fractures. Head CT showed no acute intracranial abnormality malady, preseptal soft tissue swelling of the left orbit. Cervical neck CT showed no acute fracture or abnormality. She was in AKA with BUN of 40 and creatinine of 1.57 up from previous value of 1.41. She was mildly hyperkalemic with potassium of 4.8. Troponin was negative at 0.01. UA was not concerning for infection. Patient was hypertensive with blood pressures running in the 200s over 100s. She was also bradycardic with heart rate in the 50s patient's left facial laceration was sutured in the emergency department. She was given fentanyl for pain and was given extended release metoprolol for her blood pressure. On exam, patient alert and oriented times one, she does answer questions appropriately. Gen: A, A, Oriented to self Head: Has swelling and ecchymosis surrounding her left eye and over her left cheek. She has a 5 cm laceration under her left eye with sutures in place. Heart: S1S2+ bradycardia a/p 1. Acute fall with head laceration 2. Syncope 3. Bradycardia hold Metoprolol on tele check serial trop cont close monitoring
[2017-01-14] MEDS: *HR* Morphine 2 MG/ML SYRINGE IVP PRN (14:34)
[2017-01-14] MEDS: 0.9 % Sodium Chloride 1,000 ML IVC SCH (14:40)
--- NOTE | 2017-01-14 15:02 | Electrocardiograph Report ---
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
[2017-01-14] MEDS: Acetaminophen 325 MG TABLET PO PRN (18:20)
[2017-01-14] MEDS: Aspirin 81 MG TAB.CHEW PO SCH (23:30)
[2017-01-14] MEDS: Melatonin 3 MG TABLET PO SCH (23:30)
[2017-01-14] MEDS: OLANZapine 5 MG TAB.RAPDIS PO SCH (23:30)
[2017-01-14] MEDS: *HR* LORazepam 0.5 MG TABLET PO SCH (23:31)
[2017-01-14] MEDS: Latanoprost 2.5 ML BOTTLE BOTH EYES SCH (23:57)
[2017-01-15 01:24] LABS: Hematocrit 31.7 % (35.3-44.9); Hemoglobin 10.2 g/dL (11.5-15.4); Immature Granulocytes % 0.2 % (0-4); Immature Platelets 2.1 % (1.1-6.1); Lymphocytes % 22.5 %; Mean Corpuscular HGB Conc 32.2 g/dL (31.6-35.5); Mean Corpuscular Hemoglobin 30.2 pg (28.0-33.3); Mean Corpuscular Volume 93.8 fL (83.0-100.0); Platelet Count 186 K/mcL (140-400); Red Blood Count 3.38 M/mcL (3.82-4.97); Red Cell Distribution Width 13.3 % (11.5-14.5); Segmented Neutrophils % 58.3 %
[2017-01-15 01:25] LABS: Basophils % 0.8 %; Eosinophils # 0.3 K/mcL (0.0-0.6); Eosinophils % 5.4 %; Lymphocytes # 1.2 K/mcL (0.6-4.6); Monocytes # 0.7 K/mcL (0.0-1.3); Monocytes % 12.8 %; Neutrophils # 3.1 K/mcL (1.6-8.9)
[2017-01-15 01:39] LABS: Calcium 9.2 mg/dL (8.6-10.8); Potassium 4.8 mEq/L (3.5-4.5)
[2017-01-15] MEDS: 0.9 % Sodium Chloride 1,000 ML IVC SCH (09:51)
[2017-01-15] MEDS: Folic Acid 1 MG TABLET PO SCH (09:53)
[2017-01-15] MEDS: *HR* LORazepam 0.5 MG TABLET PO SCH ×2 (09:53→21:03)
[2017-01-15] MEDS: Furosemide 20 MG TABLET PO SCH (09:53)
[2017-01-15] MEDS: *HR* Morphine 2 MG/ML SYRINGE IVP PRN (13:30)
[2017-01-15] MEDS ORDERED: Levofloxacin 500 MG/100 ML 500 MG/100 ML BAG IVPB ONE (19:29)
[2017-01-15] MEDS: OLANZapine 5 MG TAB.RAPDIS PO SCH (21:03)
[2017-01-15] MEDS: Aspirin 81 MG TAB.CHEW PO SCH (21:03)
[2017-01-15] MEDS: Melatonin 3 MG TABLET PO SCH (21:03)
[2017-01-15] MEDS: *HR* OxyCODONE Immed Rel 5 MG TABLET PO PRN (21:23)
[2017-01-15] MEDS: Latanoprost 2.5 ML BOTTLE BOTH EYES SCH (21:24)
--- NOTE | 2017-01-15 21:58 | Event Note ---
Date of Encounter: 01/15/17 Time of Encounter: 12:00 I examined this patient and my medical decision-making was reviewed with the Resident Physician on 01/15/17. I agree with the documented findings, disposition and treatment plan as described except to the extent set forth below. Almendarez is currently admitted for fall and bradycardia. She remains moderate to high risk due to potential for worsening neuro status. Ms. Almendarez is alert. Confused about place and time. No fever or chills. No GI issues. Exam Alert. Comfortable Mucus membranes moist Heart reg No wheeze Abd soft Urine with gram neg rods I/P 1. UTI - gram neg- Levaquin given 2. Fall 3. Facial/head trauma 4. HTN 5. CKD 3 6. Dementia Further diagnoses and plan per progress note of this day.
--- NOTE | 2017-01-15 22:27 | Internal Med Progress Note ---
<Chasity Black - Last Filed: 01/15/17 23:27> Date of Encounter: 01/15/17 Time of Encounter: 09:50 - Assessment and plan (1) Fall Current Visit: Yes Status: Acute Assessment and plan: -Presented to ED after unwitnessed fall in ECF. Pt unable to elaborate on details of fall, so exact mechanism of fall unclear. -Imaging of head and neck largely unremarkable: -CT head without contrast: negative for acute intracranial abnormalities -Cervical spine CT without contrast: negative for acute abnormality of cervical spine -Face CT without contrast: negative for acute osseus injury of face -Brain MRI without contrast: negative for evidence of acute infarct. Mild chronic microvascular white matter ischemic disease noted. -EKG: sinus bradycardia, troponins trended x3, highest value of 0.04 in the setting of LORA. -Pt taking multiple prescribed meds listed on Beers criteria that make pt a "fall risk." Qualifiers: Encounter type: initial encounter Qualified Code(s): W19.XXXA - Unspecified fall, initial encounter (2) Bradycardia Current Visit: Yes Status: Acute Assessment and plan: -Likely secondary to polypharmacy - Decreased metoprolol dosage to 25mg PO BID. - Continue to monitor (3) Dementia Current Visit: Yes Status: Acute Assessment and plan: - Continue home meds. namenda, aricept Qualifiers: Dementia type: unspecified type Dementia behavioral disturbance: without behavioral disturbance Qualified Code(s): F03.90 - Unspecified dementia without behavioral disturbance (4) Head injury Current Visit: Yes Status: Acute Assessment and plan: - Secondary to fall. - Workup and management as above. Qualifiers: Encounter type: initial encounter Qualified Code(s): S09.90XA - Unspecified injury of head, initial encounter (5) Hypertension Current Visit: Yes Status: Acute Assessment and plan: - Most recently 120/59, well controlled - Continue home meds - Will reassess tomorrow given decrease in metoprolol dosage today Qualifiers: Hypertension type: essential hypertension Qualified Code(s): I10 - Essential (primary) hypertension (6) DVT prophylaxis Current Visit: Yes Status: Acute Assessment and plan: - Heparin held due to fall risk - Time Spent With Patient 25 - 35 minutes - Subjective Interval history: -pt seen and examined at bedside. H/o dementia, pt oriented only to person. Complains of headache located across forehead and Lt periorbital area, does not elaborate further. Denies chest pain, SOB, abdominal pain. - Constitutional Vitals: Temp Pulse Resp BP Pulse Ox 98.7 F 66 17 147/57 95 01/15/17 19:00 01/15/17 19:00 01/15/17 19:00 01/15/17 19:00 01/15/17 19:00 General appearance: Present: cooperative, A&O X 1, pleasant, no acute distress, answers questions appropriately - Head Additional comments: -Ecchymosis and swelling of Lt periorbital area and Lt orbit. Able to open Lt eye. Sutures from laceration repair present along Lt zygomatic arch. - Eye Eye exam: Present: EOMI, periorbital swelling. Absent: conjunctival injection - Neck Neck exam general surgery: Present: full ROM, normal inspection, trachea midline - Respiratory Respiratory exam: Present: CTAB. Absent: respiratory distress, wheezes - Cardiovascular Cardiovascular exam: Present: bradycardia, +S1, +S2 Additional comments: regular rhythm - Neurological Exam Neurological exam: Present: alert. Absent: speech deficit Internal Medicine: Result - Labs CBC & Chem 7: 01/15/17 01:00 01/15/17 01:00 Labs: Short CBC 01/15/17 Range/Units 01:00 WBC 5.3 (4.3-11.1) K/mcL Hgb 10.2 L (11.5-15.4) g/dL Hct 31.7 L (35.3-44.9) % Plt Count 186 (140-400) K/mcL Neutrophils # 3.1 (1.6-8.9) K/mcL BMP 01/15/17 01:00 Sodium 137 Potassium 4.8 H Chloride 105 Carbon Dioxide 25 BUN 36 H Creatinine 1.57 H Glucose 142 H Calcium 9.2 Cardiac Enzymes 01/15/17 Range/Units 01:00 Troponin I 0.04 H* (0-0.03) ng/mL - ABG Interpretation ABG results: PT/INR, D-dimer PT 13.1 Seconds (9.4-12.1) H 01/14/17 10:22 Consult Discharge Plan - Plan Referrals: Chacorta Arce MD [Primary Care Provider] - <Jitendra Roa - Last Filed: 01/16/17 08:49> Date of Encounter: 01/15/17 - Constitutional Vitals: Temp Pulse Resp BP Pulse Ox 98.3 F 75 18 152/74 95 01/16/17 08:08 01/16/17 08:08 01/16/17 08:08 01/16/17 08:08 01/16/17 08:08 Internal Medicine: Result - Labs CBC & Chem 7: 01/15/17 01:00 01/16/17 04:35 Labs: BMP 01/16/17 04:35 Sodium 139 Potassium 4.4 Chloride 107 Carbon Dioxide 25 BUN 32 H Creatinine 1.35 H Glucose 95 Calcium 9.0 - ABG Interpretation ABG results: PT/INR, D-dimer PT 13.1 Seconds (9.4-12.1) H 01/14/17 10:22 - Attending Attestation I examined this patient and my medical decision-making was reviewed with the Resident Physician on 01/15/17. I agree with the documented findings, disposition and treatment plan as described except to the extent set forth below. Please see event note of this date.
[2017-01-16 05:09] LABS: Potassium 4.4 mEq/L (3.5-4.5)
[2017-01-16] MEDS: *HR* Morphine 2 MG/ML SYRINGE IVP PRN ×2 (08:53→20:21)
[2017-01-16] MEDS: Folic Acid 1 MG TABLET PO SCH (08:55)
[2017-01-16] MEDS: *HR* LORazepam 0.5 MG TABLET PO SCH ×2 (08:55→20:07)
[2017-01-16] MEDS: Furosemide 20 MG TABLET PO SCH (08:55)
--- NOTE | 2017-01-16 11:57 | Discharge Summary ---
Date of Encounter: 01/16/17 Time of Encounter: 09:00 - Discharge Diagnosis (1) Fall Status: Acute Qualifiers: Encounter type: initial encounter Qualified Code(s): W19.XXXA - Unspecified fall, initial encounter (2) Bradycardia Status: Acute (3) Dementia Status: Acute Qualifiers: Dementia type: unspecified type Dementia behavioral disturbance: without behavioral disturbance Qualified Code(s): F03.90 - Unspecified dementia without behavioral disturbance (4) Head injury Status: Acute Qualifiers: Encounter type: initial encounter Qualified Code(s): S09.90XA - Unspecified injury of head, initial encounter (5) Hypertension Status: Acute Qualifiers: Hypertension type: essential hypertension Qualified Code(s): I10 - Essential (primary) hypertension (6) DVT prophylaxis Status: Acute - Discharge Medications Home Medications: Aspirin 81 mg PO HS 11/11/15 [History] Cholecalciferol (D-3) [Vitamin D] 1,000 unit PO DAILY #0 11/11/15 [History] Docusate [Colace] 100 mg PO BID PRN #0 11/11/15 [History] Fluticasone Propionate Nasal [Flonase] 100 mcg NS DAILY PRN 11/11/15 [History] Memantine HCl 10 mg PO BID #0 11/11/15 [History] Multivitamin-Min/Iron/FA/Vit K [Multi-Day Plus Minerals Tablet] 1 each PO DAILY 11/11/15 [History] OLANZapine [Zyprexa] 5 mg PO HS 11/11/15 [History] Omeprazole 40 mg PO BID 11/11/15 [History] Polyethylene Glycol 3350 [MiraLAX] 17 gm PO BID 11/11/15 [History] Potassium Chloride [K-Tab ER] 10 meq PO DAILY #0 11/11/15 [History] Promethazine [Phenergan] 25 mg PO Q6H PRN 11/11/15 [History] Melatonin 10 mg PO HS 01/10/16 [History] Donepezil [Aricept] 10 mg PO HS 01/19/16 [History] Menthol [Biofreeze] 1 appl TP TID PRN 02/24/16 [History] Oxybutynin Chloride [Ditropan Xl] 5 mg PO DAILY 02/24/16 [History] Atorvastatin [Lipitor] 40 mg PO HS tablet 02/28/16 [Rx] Folic Acid 1 mg PO DAILY tablet 02/28/16 [Rx] Lisinopril [Zestril] 2.5 mg PO DAILY #0 02/28/16 [Rx] Metoprolol XL (24 HR) Succ [Toprol Xl] 50 mg PO BID tab.er.24h 02/28/16 [Rx] Thiamine (B-1) [Vitamin B-1] 100 mg PO DAILY tablet 02/28/16 [Rx] Calcium Carbonate/Vitamin D3 [Calcium 600+D Softgel] 1 each PO TID 04/06/16 [ History] Acetaminophen [Tylenol] 325 mg PO Q6HR PRN 06/11/16 [History] Furosemide [Lasix] 20 mg PO DAILY 06/11/16 [History] MOM Conc [MILK OF MAGNESIA conc] 30 ml PO DAILY PRN 06/11/16 [History] Metoclopramide [Reglan] 10 mg PO QID 06/11/16 [History] Vitamin B Complex 1 each PO DAILY 06/11/16 [History] Dextromethorphan HBr/Quinidine [Nuedexta 20-10 mg Capsule] 1 tab PO BID [History] LORazepam [Ativan] 0.5 mg PO BID 01/14/17 [History] Latanoprost [Xalatan] 1 drop BOTH EYES HS 01/14/17 [History] Allergies/Adverse Reactions: 3 Allergy/AdvReac Type Severity Reaction Status Date / Time clarithromycin Allergy Hives Verified 01/14/17 12:31 codeine Allergy Hives Verified 01/14/17 12:31 hydrocodone [From Lortab] Allergy Hives Verified 01/14/17 12:31 ketorolac Allergy Hives Verified 01/14/17 12:31 Penicillins Allergy Hives Verified 01/14/17 12:31 ivp dye Allergy Anaphylaxis Uncoded 11/10/15 21:04 Procedures/tests Complete & Pending: Procedures Performed prior 72 hours Category Date Time Status MR head/brain wo con [MR] Routine MRI 01/14/17 15:09 Completed EV carotid duplex imaging BI Routine Y 01/14/17 15:09 Completed Date of admission: 01/14/17 13:27 Primary care physician: Chacorta Arce MD Consults: 01/14/17 13:34 Consult to Lockstitch Lining Setter [CONS] Routine Reason for SW Consult: lives [facility], dementia. Discharge planning 01/14/17 14:51 Consult to Occupational Therapy [CONS] Routine Comment: Evaluate, develop and implement POC Reason for Consult: falls Consult to Physical Therapy [CONS] Routine Comment: Evaluate, develop and implement POC Reason for Consult: falls - Patient Status Condition: Fair - Discharge Instructions Follow Up With: Chacorta Arce MD [Primary Care Provider] - Hospital course: Ms. Almendarez is a 81 year old female - Time Spent with Patient Total time spent providing and/or coordinating discharge services: - Constitutional Vitals: Temp Pulse Resp BP Pulse Ox 98.3 F 75 18 152/74 95 01/16/17 08:08 01/16/17 08:08 01/16/17 08:08 01/16/17 08:08 01/16/17 08:08 General appearance: Present: cooperative, A&O X 1, pleasant, no acute distress, answers questions appropriately
[2017-01-16] MEDS ORDERED: levoFLOXacin 250 MG TABLET PO SCH (13:30)
--- NOTE | 2017-01-16 19:14 | Carotid Imaging Report ---
Carotid Duplex Patient Name:Tigist Almendarez Order Number:[id number] Procedure Date:01/16/2017 Date:1935ge:81 yrs Gender:Female Rt.BP:128 / 65 mmHgHeart Rate: Location:[facility] Room #: 2NE34 Manager Stone:JOEL MerrittT, RDCS Referring MD:Jitendra Roa DO pasting machine offbearer:Chacorta Arce MD Reading MD:Brandon Schaeffer MD , FACS Primary Indications:syncope Risk Factors Yes/No Hypertension Yes Diabetes No Hypercholesterolemia Yes Smoking Current No Impressions: Findings: Bilateral carotid systems have nonstenotic plaque. Findings Carotid Duplex: Right: The right proximal common carotid artery has a PSV of 109 cm/s and a EDV of 15 cm/s. The right mid common carotid artery has a PSV of 92 cm/s and a EDV of 11 cm/s. The right distal common carotid artery has a PSV of 89 cm/s and a EDV of 12 cm/s. The right bifurcation has a PSV of 80 cm/s and a EDV of 11 cm/s. The right proximal internal carotid artery has a PSV of 64 cm/s and a EDV of 12 cm/s. The right mid internal carotid artery has a PSV of 51 cm/s and a EDV of 12 cm/s. There is 40-59% stenosis in the right distal internal carotid artery with a PSV of 191 cm/s and a EDV of 38 cm/s. The right eca has a PSV of 132 cm/s. The right vertebral artery has a PSV of 56 cm/s and a EDV of 14 cm/s. The right distal internal carotid artery was not well visualized. Left: The left proximal common carotid artery has a PSV of 101 cm/s and a EDV of 17 cm/s. The left mid common carotid artery has a PSV of 94 cm/s and a EDV of 17 cm/s. The left distal common carotid artery has a PSV of 92 cm/s and a EDV of 13 cm/s. The left bifurcation has a PSV of 101 cm/s and a EDV of 15 cm/s. The left proximal internal carotid artery has a PSV of 93 cm/s and a EDV of 12 cm/s. The left mid internal carotid artery has a PSV of 107 cm/s and a EDV of 20 cm/s. There is 40-59% stenosis in the left distal internal carotid artery with a PSV of 166 cm/s and a EDV of 37 cm/s. The left eca has a PSV of 116 cm/s. The left vertebral artery has a PSV of 80 cm/s and a EDV of 23 cm/s. The left distal internal carotid artery was not well visualized. Carotid Results Right PSV EDV Assessment Proximal CCA 109 15 Mid CCA 92 11 Distal CCA 89 12 Bifurcation 80 11 Proximal ICA 64 12 Mid ICA 51 12 Distal ICA 191 38 Not Well Visualized ECA 132 0 Vertebral Artery 56 14 Left PSV EDV Assessment Proximal CCA 101 17 Mid CCA 94 17 Distal CCA 92 13 Bifurcation 101 15 Proximal ICA 93 12 Mid ICA 107 20 Distal ICA 166 37 Not Well Visualized ECA 116 0 Vertebral Artery 80 23 Ratio's Right ICA/CCA Ratio: 2.08 Left ICA/CCA Ratio: 1.77 Updated by Brandon Schaeffer MD, FACS on 01/16/2017 7:07:08 PM Brandon Schaeffer MD electronically signed on 01/16/2017 7:07:39 PM with status of Final
[2017-01-16] MEDS: Aspirin 81 MG TAB.CHEW PO SCH (20:07)
[2017-01-16] MEDS: Melatonin 3 MG TABLET PO SCH (20:08)
[2017-01-16] MEDS: OLANZapine 5 MG TAB.RAPDIS PO SCH (20:08)
[2017-01-16] MEDS: Latanoprost 2.5 ML BOTTLE BOTH EYES SCH (20:08)
[2017-01-16] MEDS ORDERED: Haloperidol Lactate 5 MG/ML VIAL IVP ONE (21:08)
--- NOTE | 2017-01-16 22:23 | Event Note ---
Date of Encounter: 01/16/17 Time of Encounter: 14:00 I examined this patient and my medical decision-making was reviewed with the Resident Physician on 01/16/17. I agree with the documented findings, disposition and treatment plan as described except to the extent set forth below. Further info in note today. Ms. Almendarez is currently admitted for fall, head trauma and bradycardia. She has UTI as well. She remains moderate to high risk due to potential for worsening neuro status. Ms Almendarez is awake and interactive. She denies issues except face pain. Had episode of chest discomfort today - has happened before per family and work up negative. No fever or chills. No GI issues. Exam Alert. Comfortable Mucus membranes dry Heart reg No wheeze at this time. Abd soft and nontender Edema unchanged. I/P 1. Fall - stable at this time 2. UTI - on Levaquin. Final cx pending 3. Head/facial trauma 4. Dementia Anticipate d/c to ECF tomorrow.
--- NOTE | 2017-01-16 22:57 | Internal Med Progress Note ---
<Chasity Black - Last Filed: 01/17/17 00:14> Date of Encounter: 01/17/17 Time of Encounter: 09:10 - Assessment and plan (1) Chest pain Current Visit: Yes Status: Acute Assessment and plan: - troponin 0.02 today -continue residential monitor -2 view CXR shows possible new bibasilar opacification, possibly PNA or acute aspiration. Will repeat CXR with PA & lateral views in morning. Will consider non-contrast chest CT Qualifiers: Chest pain type: unspecified Qualified Code(s): R07.9 - Chest pain, unspecified (2) Fall Current Visit: Yes Status: Acute Assessment and plan: -Presented to ED after unwitnessed fall in ECF. Pt unable to elaborate on details of fall, so exact mechanism of fall unclear. -Imaging of head and neck largely unremarkable: -CT head without contrast: negative for acute intracranial abnormalities -Cervical spine CT without contrast: negative for acute abnormality of cervical spine -Face CT without contrast: negative for acute osseus injury of face -Brain MRI without contrast: negative for evidence of acute infarct. Mild chronic microvascular white matter ischemic disease noted. - troponins trended x3, highest value of 0.04 in the setting of LORA, troponin on repeat was 0.02 today -Pt taking multiple prescribed meds listed on Beers criteria that make pt a "fall risk." Qualifiers: Encounter type: initial encounter Qualified Code(s): W19.XXXA - Unspecified fall, initial encounter (3) UTI (urinary tract infection) Current Visit: Yes Status: Acute Assessment and plan: -gram neg rods present (per preliminary micro report) -Levofloxacin started Qualifiers: (4) Bradycardia Current Visit: Yes Status: Acute Assessment and plan: -continue metoprolol dosage to 25mg PO BID. - Continue to monitor (5) Dementia Current Visit: Yes Status: Acute Assessment and plan: - Continue home meds. namenda, aricept Qualifiers: Dementia type: unspecified type Dementia behavioral disturbance: without behavioral disturbance Qualified Code(s): F03.90 - Unspecified dementia without behavioral disturbance (6) Head injury Current Visit: Yes Status: Acute Assessment and plan: - Secondary to fall. - Workup and management as above. Qualifiers: Encounter type: initial encounter Qualified Code(s): S09.90XA - Unspecified injury of head, initial encounter (7) Hypertension Current Visit: Yes Status: Acute Assessment and plan: - Today 152/74 - Continue home meds Qualifiers: Hypertension type: essential hypertension Qualified Code(s): I10 - Essential (primary) hypertension (8) DVT prophylaxis Current Visit: Yes Status: Acute Assessment and plan: - Heparin held due to fall risk - Subjective Interval history: -Pt's nurse informed me pt was c/o chest pain and I reviewed the EKG that had just been done, pt seen and examined at bedside. Pt was quite tearful and appeared to be in mild distress. Nurse placed pt on nasal cannula and administered morphine for pain control. She c/o stabbing, non-radiating chest pain located midline chest. Pt also c/o head pain and various other non- specific symptoms. Asked nurse to give pt a small dose of Ativan for her anxiety. - Constitutional Vitals: Temp Pulse Resp BP Pulse Ox 98.7 F 76 18 139/71 95 01/16/17 21:00 01/16/17 21:00 01/16/17 21:00 01/16/17 21:00 01/16/17 21:00 General appearance: Present: cooperative, A&O X 1, mild distress, answers questions appropriately - Head Additional comments: No significant changes from yesterday, slightly less swelling of Lt orbital and periorbital areas - Eye Eye exam: Present: EOMI, normal appearance Pupils: Absent: irregular, unequal - Neck Neck exam general surgery: Present: full ROM, normal inspection - Respiratory Respiratory exam: Present: CTAB (limited 2/2 pt's crying). Absent: accessory muscle use, respiratory distress - Cardiovascular Cardiovascular exam: Present: RRR, +S1, +S2 Additional comments: Occasional PVCs on residential monitor - Neurological Exam Neurological exam: Present: alert. Absent: facial droop, speech deficit - Psychiatric Psychiatric exam: Present: anxious (tearful, in mild distress. Answers questions appropriately) Internal Medicine: Result - Labs CBC & Chem 7: 01/15/17 01:00 01/16/17 04:35 Labs: BMP 01/16/17 04:35 Sodium 139 Potassium 4.4 Chloride 107 Carbon Dioxide 25 BUN 32 H Creatinine 1.35 H Glucose 95 Calcium 9.0 Cardiac Enzymes 01/16/17 Range/Units 09:31 Troponin I 0.02 (0-0.03) ng/mL - ABG Interpretation ABG results: PT/INR, D-dimer PT 13.1 Seconds (9.4-12.1) H 01/14/17 10:22 - EKG Interpretation EKG Interpreted by Myself: Yes (PVC in V4-V6) EKG shows normal: sinus rhythm, ST-T waves (no ST elevations or depressions, no TWI) Rate: normal - Prior EKG Data Prior EKG available for review: yes EKG comments: PVCs not present on pt's EKG prior to admission - Impressions Impressions Chest X-Ray 01/16/17 09:11 IMPRESSION: Possible new bibasilar opacification, which could represent pneumonia/acute aspiration. Please correlate clinically. If the patient can participate in a repeat chest x-ray with PA and lateral positioning, that would be helpful; otherwise, CT could be considered if there is ongoing clinical concern. D/ / Kevin Montanez / Kevin Montanez Interpreting Provider: Kevin Montanez - VTE Documentation of Mechanical Device: Intermittent pneumatic compression device Consult Discharge Plan - Plan Referrals: Chacorta Arce MD [Primary Care Provider] - <Jitendra Roa - Last Filed: 01/17/17 12:57> Date of Encounter: 01/16/17 - Constitutional Vitals: Temp Pulse Resp BP Pulse Ox 97.7 F 60 17 93/80 96 01/17/17 07:00 01/17/17 07:00 01/17/17 07:00 01/17/17 07:00 01/17/17 07:00 Internal Medicine: Result - Labs CBC & Chem 7: 01/17/17 08:30 01/17/17 06:09 Labs: Short CBC 01/17/17 Range/Units 08:30 WBC 7.1 (4.3-11.1) K/mcL Hgb 10.3 L (11.5-15.4) g/dL Hct 31.9 L (35.3-44.9) % Plt Count 171 (140-400) K/mcL Neutrophils # 3.9 (1.6-8.9) K/mcL BMP 01/17/17 06:09 Sodium 138 Potassium 4.8 H Chloride 107 Carbon Dioxide 21 BUN 33 H Creatinine 1.96 H Glucose 93 Calcium 9.1 - ABG Interpretation ABG results: PT/INR, D-dimer PT 13.1 Seconds (9.4-12.1) H 01/14/17 10:22 - Impressions Impressions Chest X-Ray 01/16/17 09:11 IMPRESSION: Possible new bibasilar opacification, which could represent pneumonia/acute aspiration. Please correlate clinically. If the patient can participate in a repeat chest x-ray with PA and lateral positioning, that would be helpful; otherwise, CT could be considered if there is ongoing clinical concern. D/ / Kevin Montanez / Kevin Montanez Interpreting Provider: Kevin Montanez Chest X-Ray 01/17/17 04:00 IMPRESSION: No displaced left rib fracture. No acute cardiopulmonary abnormality D/ / Nura Kendrick MD / Nura Kendrick MD Interpreting Provider: Nura Kendrick MD Head CT 01/17/17 12:15 IMPRESSION: No acute intracranial abnormality. D/ / Gordy Kendrick MD / Gordy Kendrick MD Interpreting Provider: Gordy Kendrick MD - Attending Attestation I examined this patient and my medical decision-making was reviewed with the Resident Physician on 01/16/17. I agree with the documented findings, disposition and treatment plan as described except to the extent set forth below. Please see event note of this date.
[2017-01-17 06:29] LABS: Calcium 9.1 mg/dL (8.6-10.8); Potassium 4.8 mEq/L (3.5-4.5)
[2017-01-17 08:40] LABS: Basophils % 0.6 %; Eosinophils # 0.3 K/mcL (0.0-0.6); Eosinophils % 4.4 %; Hematocrit 31.9 % (35.3-44.9); Hemoglobin 10.3 g/dL (11.5-15.4); Immature Granulocytes % 0.4 % (0-4); Lymphocytes # 1.9 K/mcL (0.6-4.6); Mean Corpuscular HGB Conc 32.3 g/dL (31.6-35.5); Mean Corpuscular Hemoglobin 30.3 pg (28.0-33.3); Mean Corpuscular Volume 93.8 fL (83.0-100.0); Mean Platelet Volume 9.8 fL (9.4-12.4); Monocytes # 0.9 K/mcL (0.0-1.3); Monocytes % 12.9 %; Neutrophils # 3.9 K/mcL (1.6-8.9); Platelet Count 171 K/mcL (140-400); Red Cell Distribution Width 13.2 % (11.5-14.5); Segmented Neutrophils % 54.7 %
[2017-01-17] MEDS: *HR* LORazepam 0.5 MG TABLET PO SCH ×2 (10:48→20:35)
[2017-01-17] MEDS: Folic Acid 1 MG TABLET PO SCH (10:49)
[2017-01-17] MEDS: Furosemide 20 MG TABLET PO SCH (10:49)
[2017-01-17] MEDS: *HR* OxyCODONE Immed Rel 5 MG TABLET PO PRN (16:04)
[2017-01-17] MEDS: Acetaminophen 325 MG TABLET PO PRN (16:04)
[2017-01-17] MEDS: *HR* Morphine 2 MG/ML SYRINGE IVP PRN ×2 (18:45→22:27)
--- NOTE | 2017-01-17 19:31 | Event Note ---
Date of Encounter: 01/17/17 Time of Encounter: 12:15 I examined this patient and my medical decision-making was reviewed with the Resident Physician on 01/17/17. I agree with the documented findings, disposition and treatment plan as described except to the extent set forth below. Ms. Almendarez is currently admitted for UTI and encephalopathy. She has had some agitation over last 24 hours. She is on abx for UTI. She had episode of unresponsiveness today. She remains moderate to high risk due to potential for worsening neuro status. Ms. Almendarez does not feel well today. No CP or SOB. Headache present. No fever or chills. No GI issues. Exam Alert. Tearful Mucus membranes dry Heart reg Lungs diminished Abd soft I/P 1. Acute encephalopathy 2. UTI - on IV abx 3. Dementia 4. Head trauma Further diagnoses and plan as per progress note of this date.
[2017-01-17] MEDS: Aspirin 81 MG TAB.CHEW PO SCH (20:34)
[2017-01-17] MEDS: Latanoprost 2.5 ML BOTTLE BOTH EYES SCH (20:35)
[2017-01-17] MEDS: OLANZapine 5 MG TAB.RAPDIS PO SCH (20:35)
[2017-01-17] MEDS: Melatonin 3 MG TABLET PO SCH (20:35)
--- NOTE | 2017-01-17 21:35 | Internal Med Progress Note ---
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 Repeat CXR negative for any acute cardiopulmonary processes. Qualifiers: Chest pain type: unspecified Qualified Code(s): R07.9 - Chest pain, unspecified (2) Fall Current Visit: Yes Status: Acute Assessment and plan: -Presented to ED after unwitnessed fall in ECF. Pt unable to elaborate on details of fall, so exact mechanism of fall unclear. -Pt taking multiple prescribed meds listed on Beers criteria that make pt a "fall risk." -continue fall precautions Qualifiers: Encounter type: initial encounter Qualified Code(s): W19.XXXA - Unspecified fall, initial encounter (3) UTI (urinary tract infection) Current Visit: Yes Status: Acute Assessment and plan: -Klebsiella and unknown gram neg mc (per preliminary micro report) -Levofloxacin stopped. Day 1 invanz Qualifiers: Urinary tract infection type: site unspecified Hematuria presence: without hematuria Qualified Code(s): N39.0 - Urinary tract infection, site not specified (4) Bradycardia Current Visit: Yes Status: Acute Assessment and plan: -syncopal episode today while waiting for CXR, sinus chris on ekg -continue metoprolol dosage to 25mg PO BID. - Continue to monitor (5) Dementia Current Visit: Yes Status: Acute Assessment and plan: - Continue home meds. namenda, aricept Qualifiers: Dementia type: unspecified type Dementia behavioral disturbance: without behavioral disturbance Qualified Code(s): F03.90 - Unspecified dementia without behavioral disturbance (6) Head injury Current Visit: Yes Status: Acute Assessment and plan: - Secondary to fall. - Workup and management as above. Qualifiers: Encounter type: initial encounter Qualified Code(s): S09.90XA - Unspecified injury of head, initial encounter (7) Hypertension Current Visit: Yes Status: Acute Assessment and plan: - Today appears to be well controlled - Continue home meds Qualifiers: Hypertension type: essential hypertension Qualified Code(s): I10 - Essential (primary) hypertension (8) DVT prophylaxis Current Visit: Yes Status: Acute Assessment and plan: - Heparin held due to fall risk (9) Syncope Current Visit: Yes Status: Acute Assessment and plan: Head CT after episodes today was negative for acute intracranial processes Qualifiers: Syncope type: unspecified Qualified Code(s): R55 - Syncope and collapse - Subjective Interval history: Pt seen and examined at bedside. Pt c/o entire body hurting today. Pt required bed and chair alarms because she kept getting up and she is a fall risk. Pt had two syncopal episodes while waiting in radiology for chest xrays, Glucose and BP were unremarkable, ECG showed sinus bradcardia, head CT without contrast ordered. - Constitutional Vitals: Temp Pulse Resp BP Pulse Ox 98.2 F 76 22 176/106 90 01/17/17 18:46 01/17/17 18:46 01/17/17 18:46 01/17/17 18:46 01/17/17 18:46 General appearance: Present: cooperative, A&O X 1, no acute distress, answers questions appropriately - Head Head exam: Present: normocephalic Additional comments: ecchymosis and swelling of face improved over yesterday - Eye Eye exam: Present: EOMI, normal appearance - Respiratory Respiratory exam: Present: CTAB. Absent: accessory muscle use, respiratory distress, wheezes - Cardiovascular Cardiovascular exam: Present: RRR, +S1, +S2. Absent: irregular rhythm - Extremities Exam Additional comments: No LE edema; DP pulses palpable and symmetric b/l - Neurological Exam Neurological exam: Present: alert, facial droop, speech deficit Internal Medicine: Result - Labs CBC & Chem 7: 01/17/17 08:30 01/17/17 06:09 Labs: Short CBC 01/17/17 Range/Units 08:30 WBC 7.1 (4.3-11.1) K/mcL Hgb 10.3 L (11.5-15.4) g/dL Hct 31.9 L (35.3-44.9) % Plt Count 171 (140-400) K/mcL Neutrophils # 3.9 (1.6-8.9) K/mcL BMP 01/17/17 06:09 Sodium 138 Potassium 4.8 H Chloride 107 Carbon Dioxide 21 BUN 33 H Creatinine 1.96 H Glucose 93 Calcium 9.1 - ABG Interpretation ABG results: PT/INR, D-dimer PT 13.1 Seconds (9.4-12.1) H 01/14/17 10:22 - Impressions Impressions Chest X-Ray 01/17/17 04:00 IMPRESSION: No displaced left rib fracture. No acute cardiopulmonary abnormality D/ / Nura Kendrick MD / Nura Kendrick MD Interpreting Provider: Nura Kendrick MD Head CT 01/17/17 12:15 IMPRESSION: No acute intracranial abnormality. D/ / Gordy Kendrick MD / Gordy Kendrick MD Interpreting Provider: Gordy Kendrick MD - VTE Documentation of Mechanical Device: Intermittent pneumatic compression device Consult Discharge Plan - Plan Referrals: Chacorta Arce MD [Primary Care Provider] - <Jitendra Roa - Last Filed: 01/18/17 09:06> Date of Encounter: 01/18/17 - Constitutional Vitals: Temp Pulse Resp BP Pulse Ox 97.5 F L 70 18 115/66 96 01/18/17 07:00 01/18/17 07:00 01/18/17 07:00 01/18/17 07:00 01/18/17 07:00 Internal Medicine: Result - Labs CBC & Chem 7: 01/18/17 06:40 01/18/17 06:40 Labs: Short CBC 01/18/17 Range/Units 06:40 WBC 5.0 (4.3-11.1) K/mcL Hgb 9.6 L (11.5-15.4) g/dL Hct 29.8 L (35.3-44.9) % Plt Count 160 (140-400) K/mcL Neutrophils # 2.5 (1.6-8.9) K/mcL BMP 01/18/17 06:40 Sodium 140 Potassium 4.6 H Chloride 106 Carbon Dioxide 27 BUN 40 H Creatinine 2.02 H Glucose 102 H Calcium 9.2 - ABG Interpretation ABG results: PT/INR, D-dimer PT 13.1 Seconds (9.4-12.1) H 01/14/17 10:22 - Impressions Impressions Chest X-Ray 01/17/17 04:00 IMPRESSION: No displaced left rib fracture. No acute cardiopulmonary abnormality D/ / Nura Kendrick MD / Nura Kendrick MD Interpreting Provider: Nura Kendrick MD Head CT 01/17/17 12:15 IMPRESSION: No acute intracranial abnormality. D/ / Gordy Kendrick MD / Gordy Kendrick MD Interpreting Provider: Gordy Kendrick MD - Attending Attestation I examined this patient and my medical decision-making was reviewed with the Resident Physician on 01/17/17. I agree with the documented findings, disposition and treatment plan as described except to the extent set forth below. Please see event note of this date.
[2017-01-18 07:09] LABS: Basophils % 0.6 %; Eosinophils # 0.4 K/mcL (0.0-0.6); Eosinophils % 7.7 %; Hematocrit 29.8 % (35.3-44.9); Hemoglobin 9.6 g/dL (11.5-15.4); Immature Granulocytes % 0.2 % (0-4); Lymphocytes # 1.4 K/mcL (0.6-4.6); Lymphocytes % 27.2 %; Mean Corpuscular HGB Conc 32.2 g/dL (31.6-35.5); Mean Corpuscular Hemoglobin 30.5 pg (28.0-33.3); Mean Corpuscular Volume 94.6 fL (83.0-100.0); Mean Platelet Volume 9.7 fL (9.4-12.4); Monocytes # 0.7 K/mcL (0.0-1.3); Monocytes % 13.7 %; Neutrophils # 2.5 K/mcL (1.6-8.9); Platelet Count 160 K/mcL (140-400); Red Blood Count 3.15 M/mcL (3.82-4.97); Red Cell Distribution Width 13.1 % (11.5-14.5); Segmented Neutrophils % 50.6 %
[2017-01-18 07:17] LABS: Calcium 9.2 mg/dL (8.6-10.8); Potassium 4.6 mEq/L (3.5-4.5)
[2017-01-18] MEDS: *HR* LORazepam 0.5 MG TABLET PO SCH (09:01)
--- NOTE | 2017-01-18 09:06 | Discharge Summary ---
<Chasity Black - Last Filed: 01/18/17 23:34> Date of Encounter: 01/18/17 Time of Encounter: 09:05 - Discharge Diagnosis (1) Chest pain Priority: Secondary Status: Acute Qualifiers: Chest pain type: unspecified Qualified Code(s): R07.9 - Chest pain, unspecified (2) Fall Priority: Primary Status: Acute Qualifiers: Encounter type: subsequent encounter Qualified Code(s): W19.XXXD - Unspecified fall, subsequent encounter (3) UTI (urinary tract infection) Priority: Secondary Status: Acute Qualifiers: Urinary tract infection type: acute cystitis Hematuria presence: without hematuria Qualified Code(s): N30.00 - Acute cystitis without hematuria (4) Bradycardia Priority: Secondary Status: Acute Comments: -metoprolol dose of 50 decreased to 25mg as a result of pt's bradycardic heart rate (5) Dementia Priority: Secondary Status: Acute Qualifiers: Dementia type: unspecified type Dementia behavioral disturbance: without behavioral disturbance Qualified Code(s): F03.90 - Unspecified dementia without behavioral disturbance (6) Head injury Priority: Secondary Status: Acute Qualifiers: Encounter type: initial encounter Qualified Code(s): S09.90XA - Unspecified injury of head, initial encounter (7) Hypertension Priority: Secondary Status: Acute Qualifiers: Hypertension type: essential hypertension Qualified Code(s): I10 - Essential (primary) hypertension (8) DVT prophylaxis Priority: Secondary Status: Acute Comments: -no heparing given to fall risk (9) Syncope Priority: Secondary Status: Acute Qualifiers: Syncope type: unspecified Qualified Code(s): R55 - Syncope and collapse - Discharge Medications Prescriptions: Fosfomycin Tromethamine [Monurol] 3 gm PO ONCE #1 packet Home Medications: Aspirin 81 mg PO HS 11/11/15 [History] Cholecalciferol (D-3) [Vitamin D] 1,000 unit PO DAILY #0 11/11/15 [History] Docusate [Colace] 100 mg PO BID PRN #0 11/11/15 [History] Fluticasone Propionate Nasal [Flonase] 100 mcg NS DAILY PRN 11/11/15 [History] Memantine HCl 10 mg PO BID #0 11/11/15 [History] Multivitamin-Min/Iron/FA/Vit K [Multi-Day Plus Minerals Tablet] 1 each PO DAILY 11/11/15 [History] OLANZapine [Zyprexa] 5 mg PO HS 11/11/15 [History] Omeprazole 40 mg PO BID 11/11/15 [History] Polyethylene Glycol 3350 [MiraLAX] 17 gm PO BID 11/11/15 [History] Potassium Chloride [K-Tab ER] 10 meq PO DAILY #0 11/11/15 [History] Melatonin 10 mg PO HS 01/10/16 [History] Donepezil [Aricept] 10 mg PO HS 01/19/16 [History] Menthol [Biofreeze] 1 appl TP TID PRN 02/24/16 [History] Oxybutynin Chloride [Ditropan Xl] 5 mg PO DAILY 02/24/16 [History] Atorvastatin [Lipitor] 40 mg PO HS tablet 02/28/16 [Rx] Folic Acid 1 mg PO DAILY tablet 02/28/16 [Rx] Lisinopril [Zestril] 2.5 mg PO DAILY #0 02/28/16 [Rx] Thiamine (B-1) [Vitamin B-1] 100 mg PO DAILY tablet 02/28/16 [Rx] Calcium Carbonate/Vitamin D3 [Calcium 600+D Softgel] 1 each PO TID 04/06/16 [ History] Acetaminophen [Tylenol] 325 mg PO Q6HR PRN 06/11/16 [History] Furosemide [Lasix] 20 mg PO DAILY 06/11/16 [History] MOM Conc [MILK OF MAGNESIA conc] 30 ml PO DAILY PRN 06/11/16 [History] Vitamin B Complex 1 each PO DAILY 06/11/16 [History] Dextromethorphan HBr/Quinidine [Nuedexta 20-10 mg Capsule] 1 tab PO BID [History] Latanoprost [Xalatan] 1 drop BOTH EYES HS 01/14/17 [History] Fosfomycin Tromethamine [Monurol] 3 gm PO ONCE #1 packet 01/18/17 [Rx] Metoclopramide [Reglan] 5 mg PO QID tablet 01/18/17 [Rx] Metoprolol [Lopressor] 25 mg PO BID tablet 01/18/17 [Rx] Allergies/Adverse Reactions: 3 Allergy/AdvReac Type Severity Reaction Status Date / Time clarithromycin Allergy Hives Verified 01/14/17 12:31 codeine Allergy Hives Verified 01/14/17 12:31 hydrocodone [From Lortab] Allergy Hives Verified 01/14/17 12:31 ketorolac Allergy Hives Verified 01/14/17 12:31 Penicillins Allergy Hives Verified 01/14/17 12:31 ivp dye Allergy Anaphylaxis Uncoded 11/10/15 21:04 Procedures/tests Complete & Pending: Procedures Performed prior 72 hours Category Date Time Status CT head/brain wo con [CT] Stat Cat Scan 01/17/17 12:15 Completed ECG 12 lead ECG [ECG] Routine Y 01/17/17 12:18 Completed EV carotid duplex imaging BI Routine Y 01/16/17 15:44 Completed Date of admission: 01/14/17 13:27 Primary care physician: Chacorta Arce MD Consults: 01/14/17 13:34 Consult to [facility] [CONS] Routine Reason for SW Consult: lives at [facility], dementia. Discharge planning 01/14/17 14:51 Consult to Occupational Therapy [CONS] Routine Comment: Evaluate, develop and implement POC Reason for Consult: falls Consult to Physical Therapy [CONS] Routine Comment: Evaluate, develop and implement POC Reason for Consult: falls - Patient Status Disposition: Transfer SNF Condition: Good Functional capacity at discharge: bed bound Overall status at discharge: patient is progressing back to baseline - Discharge Instructions Follow Up With: Chacorta Arce MD [Primary Care Provider] - - Diet and Activity Activity: as per physical therapy Diet: advance to your usual diet Hospital course: Ms. Almendarez is a 81 year old female with PMHx of dementia who presents to the ED after an unwitnessed fall at [facility]. She has a facial abrasion as well as left orbital hematoma at time of arival and EMS noted an outward rotated left hip with tenderness. She was in and out of consciousness during EMS ride. Further history unable to be obtained due to mental status which is reportedly baseline per EMS. In the ED, vital signs significant for bradycardia at 54, hypertensive in 200s/100s, otherwise wnl. Labs were significant for hgb of 11.4, K of 4.8, BUN/Cr of 40/1.57. Troponin negative. UA contaminated. Head and face CT showed left orbit swelling, cervical spine CT, Hip Xray, Knee xray were all negative for acute processes. EKG showed sinus bradycardia. Patient was admitted to medicine service for further workup and management of fall as well as hypertension. During course of hospital stay, further workup was performed. Carotid US showed bilateral non stenotic plaque. Urine culture grew Klebsiella and E.coli and she was started on Levaquin. Patient gradually improved back to baseline during stay. She did have complaints of pleuritic chest pain and had an episode of decreased responsiveness however repeat head CT was negative. Repeat CXR showed new basilar opacity bilaterally indicating possible aspiration PNA. Possible cause of fall was syncopal episode given multiple episodes during hospital stay in combination with infection. She returned to baseline mental status. She remained hemodynamically stable with HR in 60-70s and BP well controlled on day of discharge. LORA improved to baseline. She will be sent home with prescription of fosfomycin. She was evaluated by PT/OT and will be sent back to [facility] for further care. She is medically stable for discharge. - Time Spent with Patient Total time spent providing and/or coordinating discharge services: - Constitutional Vitals: Temp Pulse Resp BP Pulse Ox 97.5 F L 70 18 115/66 96 01/18/17 07:00 01/18/17 07:00 01/18/17 07:00 01/18/17 07:00 01/18/17 07:00 General appearance: Present: cooperative, A&O X 1, no acute distress, answers questions appropriately - VTE Documentation of Mechanical Device: Intermittent pneumatic compression device <Jitendra Roa - Last Filed: 01/19/17 09:31> Date of Encounter: 01/18/17 - Discharge Diagnosis (1) UTI (urinary tract infection) Priority: Primary Status: Acute Qualifiers: Urinary tract infection type: acute cystitis Hematuria presence: without hematuria Qualified Code(s): N30.00 - Acute cystitis without hematuria (2) Fall Priority: Primary Status: Acute Qualifiers: Encounter type: subsequent encounter Qualified Code(s): W19.XXXD - Unspecified fall, subsequent encounter (3) Multiple contusions Priority: Secondary Status: Acute (4) Hypertension Priority: Secondary Status: Chronic Qualifiers: Hypertension type: essential hypertension Qualified Code(s): I10 - Essential (primary) hypertension (5) Facial injury Priority: Secondary Status: Acute Qualifiers: Encounter type: subsequent encounter Qualified Code(s): S09.93XD - Unspecified injury of face, subsequent encounter (6) Dementia Priority: Secondary Status: Chronic Qualifiers: Dementia type: Alzheimer's disease Alzheimer's disease onset: late-onset Dementia behavioral disturbance: without behavioral disturbance Qualified Code (s): G30.1 - Alzheimer's disease with late onset; F02.80 - Dementia in other diseases classified elsewhere without behavioral disturbance (7) CKD (chronic kidney disease) stage 3, GFR 30-59 ml/min Priority: Secondary Status: Chronic Procedures/tests Complete & Pending: Procedures Performed prior 72 hours Category Date Time Status CT head/brain wo con [CT] Stat Cat Scan 01/17/17 12:15 Completed ECG 12 lead ECG [ECG] Routine Y 01/17/17 12:18 Completed EV carotid duplex imaging BI Routine Y 01/16/17 15:44 Completed Date of admission: 01/14/17 13:27 Primary care physician: Chacorta Arce MD Consults: 01/14/17 13:34 Consult to [facility] [CONS] Routine Reason for SW Consult: lives at [facility], dementia. Discharge planning 01/14/17 14:51 Consult to Occupational Therapy [CONS] Routine Comment: Evaluate, develop and implement POC Reason for Consult: falls Consult to Physical Therapy [CONS] Routine Comment: Evaluate, develop and implement POC Reason for Consult: falls Hospital course: Ms. Almendarez is a 81 year old female - Time Spent with Patient Total time spent providing and/or coordinating discharge services: 39min - Constitutional Vitals: Temp Pulse Resp BP Pulse Ox 97.5 F L 68 17 133/71 96 01/18/17 07:00 01/18/17 15:00 01/18/17 15:00 01/18/17 15:00 01/18/17 15:00 - Attending Attestation I examined this patient and my medical decision-making was reviewed with the Resident Physician on 01/18/17. I agree with the documented findings, disposition and treatment plan as described except to the extent set forth below. Ms. Almendarez has been admitted for fall with facial trauma. She has been treated for UTI. She is now afebrile with stable vitals. She is ready for d/c to LTC. Exam Alert. Comfortable. Ecchymosis on face with laceration Heart reg No wheeze Abd soft Plan D/C to LTC today. Stitches out 01/21
[2017-01-18] MEDS: Acetaminophen 325 MG TABLET PO PRN ×2 (09:14→12:49)
[2017-01-18] MEDS: Folic Acid 1 MG TABLET PO SCH (09:15)
[2017-01-18] MEDS ORDERED: 0.9 % Sodium Chloride 1,000 ML IVC SCH (10:00)
[2017-01-18] MEDS ORDERED: 0.9 % Sodium Chloride 1,000 ML ONE (10:04)
[2017-01-18] MEDS: *HR* OxyCODONE Immed Rel 5 MG TABLET PO PRN (12:49)
[2017-01-18 14:50] LABS: Calcium 8.6 mg/dL (8.6-10.8); Potassium 4.7 mEq/L (3.5-4.5)
--- NOTE | 2017-01-18 16:02 | Physician Discharge Referral ---
ExtendedCare Referral Info Provider in Charge: Dr. Jitendra Roa Provider in Charge after Transfer: PCP Institutional Level of Care: Skilled - Diagnosis (1) Syncope Priority: Primary Status: Acute (2) UTI (urinary tract infection) Priority: Secondary Status: Acute (3) Chest pain Priority: Secondary Status: Acute (4) Fall Priority: Secondary Status: Acute (5) Bradycardia Priority: Secondary Status: Acute (6) Dementia Priority: Secondary Status: Acute (7) Head injury Priority: Secondary Status: Acute (8) Hypertension Priority: Secondary Status: Acute (9) DVT prophylaxis Priority: Secondary Status: Acute - Transfer Medications Prescriptions: Fosfomycin Tromethamine [Monurol] 3 gm PO ONCE #1 packet Home Medications: Aspirin 81 mg PO HS 11/11/15 [History] Cholecalciferol (D-3) [Vitamin D] 1,000 unit PO DAILY #0 11/11/15 [History] Docusate [Colace] 100 mg PO BID PRN #0 11/11/15 [History] Fluticasone Propionate Nasal [Flonase] 100 mcg NS DAILY PRN 11/11/15 [History] Memantine HCl 10 mg PO BID #0 11/11/15 [History] Multivitamin-Min/Iron/FA/Vit K [Multi-Day Plus Minerals Tablet] 1 each PO DAILY 11/11/15 [History] OLANZapine [Zyprexa] 5 mg PO HS 11/11/15 [History] Omeprazole 40 mg PO BID 11/11/15 [History] Polyethylene Glycol 3350 [MiraLAX] 17 gm PO BID 11/11/15 [History] Potassium Chloride [K-Tab ER] 10 meq PO DAILY #0 11/11/15 [History] Melatonin 10 mg PO HS 01/10/16 [History] Donepezil [Aricept] 10 mg PO HS 01/19/16 [History] Menthol [Biofreeze] 1 appl TP TID PRN 02/24/16 [History] Oxybutynin Chloride [Ditropan Xl] 5 mg PO DAILY 02/24/16 [History] Atorvastatin [Lipitor] 40 mg PO HS tablet 02/28/16 [Rx] Folic Acid 1 mg PO DAILY tablet 02/28/16 [Rx] Lisinopril [Zestril] 2.5 mg PO DAILY #0 02/28/16 [Rx] Thiamine (B-1) [Vitamin B-1] 100 mg PO DAILY tablet 02/28/16 [Rx] Calcium Carbonate/Vitamin D3 [Calcium 600+D Softgel] 1 each PO TID 04/06/16 [ History] Acetaminophen [Tylenol] 325 mg PO Q6HR PRN 06/11/16 [History] Furosemide [Lasix] 20 mg PO DAILY 06/11/16 [History] MOM Conc [MILK OF MAGNESIA conc] 30 ml PO DAILY PRN 06/11/16 [History] Vitamin B Complex 1 each PO DAILY 06/11/16 [History] Dextromethorphan HBr/Quinidine [Nuedexta 20-10 mg Capsule] 1 tab PO BID [History] Latanoprost [Xalatan] 1 drop BOTH EYES HS 01/14/17 [History] Fosfomycin Tromethamine [Monurol] 3 gm PO ONCE #1 packet 01/18/17 [Rx] Metoclopramide [Reglan] 5 mg PO QID tablet 01/18/17 [Rx] Metoprolol [Lopressor] 25 mg PO BID tablet 01/18/17 [Rx] Allergies/Adverse Reactions: 3 Allergy/AdvReac Type Severity Reaction Status Date / Time clarithromycin Allergy Hives Verified 01/14/17 12:31 codeine Allergy Hives Verified 01/14/17 12:31 hydrocodone [From Lortab] Allergy Hives Verified 01/14/17 12:31 ketorolac Allergy Hives Verified 01/14/17 12:31 Penicillins Allergy Hives Verified 01/14/17 12:31 ivp dye Allergy Anaphylaxis Uncoded 11/10/15 21:04 - Respiratory Orders None Smoking Cessation: Smoking cessation has been advised. For more information, call the [place] Tobacco Quit Line at 3-664-IRJN-NOW. - Lab Orders Lab Orders: Other (include drug levels w/frequency) (bmp) - Ancillary Orders May use pressure relief devices daily prn - Advance Directives Code Status: DNR-Arrest/Don't Intubate - Mobility Orders Bedrest - Rehabiliation Orders Rehab Potential: Good Rehab Orders: Evaluation for Physical Therapy, Evaluation for Occupational Therapy - Treatments Skin tear care topically daily PRN per policy - Diet Orders Regular CERTIFICATION: I certify that the transfer of the above named patient to an Extended Care Facility is necessary for the continuing treatment of the diagnosis listed. The above information is true and accurate reflection of patient's current condition. Confidential - Redisclosure prohibited without a patient's written consent.
[2017-01-18 21:40] VITALS: BP 107/63
--- NOTE | 2017-01-20 12:46 | Electrocardiograph Report ---
[address] [address] Test Date: 2017-01-17 Pat Name: [facility] Almendarez Department: 111 Room: 2NE34 Gender: [employer]: OLIVE : 1935 Requested By: Jitendra Roa Order Number: [id number] Reading MD: Delmar Galo MD Measurements Intervals [place] Rate: 59 P: 16 [place]: 199 QRS: -15 QRSD: 101 T: 15 QT: 442 QTc: 442 Interpretive Statements SINUS BRADYCARDIA MINIMAL VOLTAGE CRITERIA FOR LVH Electronically Signed On 01-20-2017 12:45:01 EDT by Delmar Galo MD
== END 2017-01-18 19:15 ==
LOC: EMEROO 09:46 → 3BNU 09:46 → SUATTDRO 13:27 → 3BNU 14:05 → 2NENU 15:37
PROVIDERS: ADMIT Family Medicine; ATTEND Internal Medicine